=== PATIENT | female | born 1945 | race Asian ===

== ENCOUNTER 2016-10-26 08:00 | Outpatient (CLI) | payer MEDICARE, OTHER | END 2016-10-26 08:01 | disposition home or self-care (01) | DX: E11.65 Type 2 diabetes mellitus with hyperglycemia (principal) ==

== ENCOUNTER 2016-12-16 08:50 | Outpatient (CLI) | payer MEDICARE, OTHER ==
[2016-12-18 14:52] LABS: ANA SCREEN NEGATIVE (NEGATIVE)
== END 2016-12-16 08:51 | disposition home or self-care (01) ==
LOC: LAB.R 08:50
PROVIDERS: ATTEND Internal Medicine
DX: M25.50 Pain in unspecified joint (principal)
CPT/HCPCS: 85651; 86038; 86140; 86430

== ENCOUNTER 2017-03-17 21:00 | Outpatient (CLI) | payer MEDICARE, OTHER ==
[2017-03-17 14:17] LABS: BASOPHILS % (AUTO) 0.5 %; EOSINOPHILS # (AUTO) 0.1 10^3/uL (0.0-0.7); HCT - HEMATOCRIT 41.6 % (37.0-47.0); LYMPHOCYTES # (AUTO) 1.4 10^3/uL (1.5-3.5); LYMPHOCYTES % (AUTO) 20.4 %; MEAN CORPUSCULAR HEMOGLOBIN 29.9 pg (27.0-31.0); MEAN CORPUSCULAR HGB CONC 33.6 g/dL (32.0-36.0); MEAN PLATELET VOLUME 8.3 fL (7.9-10.8); MONOCYTES # (AUTO) 0.4 10^3/uL (0.0-1.0); MONOCYTES % (AUTO) 6.2 %; NEUTROPHILS # (AUTO) 4.9 10^3/uL (1.5-6.6); NEUTROPHILS % (AUTO) 71.9 %; RED BLOOD COUNT 4.68 10^6/uL (4.20-5.40); RED CELL DISTRIBUTION WIDTH 14.3 % (12.0-15.0); UNCORRECTED WHITE BLOOD COUNT 6.8 x10^3/uL; WHITE BLOOD COUNT 6.8 x10^3/uL (4.8-10.8)
[2017-03-17 14:24] LABS: ALBUMIN/GLOBULIN RATIO 1.2 (1.0-2.2); BILIRUBIN,TOTAL 0.5 mg/dL (0.2-1.0); BUN - BLOOD UREA NITROGEN 14 mg/dL (6-20); CALCIUM 8.7 mg/dL (8.5-10.3); CARBON DIOXIDE - CO2 27 mmol/L (21-32); CHLORIDE 106 mmol/L (101-111); CHOL/HDL RATIO 3.2 (<4.4); CHOLESTEROL 188 mg/dL; CREATININE 0.8 mg/dL (0.4-1.0); GFR - MDRD 70 (>89); GLUCOSE 130 mg/dL (70-100); HDL CHOLESTEROL 58 mg/dL; LDL/HDL RATIO 1.9 (<4.4); POTASSIUM 3.9 mmol/L (3.5-5.0); SODIUM 141 mmol/L (135-145); TOTAL PROTEIN 7.7 g/dL (6.7-8.2); TRIGLYCERIDES 91 mg/dL; VLDL CHOLESTEROL 18 mg/dL
[2017-03-17 15:38] LABS: HEMOGLOBIN A1C 0.67 g/dL
== END 2017-03-17 21:01 ==
LOC: LAB.N 21:00
PROVIDERS: ATTEND Internal Medicine
DX: Z79.899 Other long term (current) drug therapy (principal); E78.5 Hyperlipidemia, unspecified; I10 Essential (primary) hypertension; E88.81 Metabolic syndrome and other insulin resistance
CPT/HCPCS: 36415; 80053; 80061; 83036; 84443; 85025

== ENCOUNTER 2017-06-03 10:28 | Outpatient (CLI) | payer MEDICARE, OTHER | END 2017-06-03 10:29 | disposition home or self-care (01) | LOC: LAB.R 10:28 | PROVIDERS: ATTEND Obstetrics & Gynecology | DX: L02.215 Cutaneous abscess of perineum (principal) | CPT/HCPCS: 87070 ==

== ENCOUNTER 2017-06-04 11:32 | Outpatient (CLI) | payer MEDICARE, OTHER | END 2017-06-04 11:33 | disposition home or self-care (01) | LOC: EMS 11:32 | PROVIDERS: ATTEND Surgery | DX: R06.00 Dyspnea, unspecified (principal) ==

== ENCOUNTER 2017-06-21 08:00 | Outpatient (CLI) | payer MEDICARE, OTHER ==
[2017-06-21 16:18] LABS: CREATININE 0.8 mg/dL (0.4-1.0)
== END 2017-06-21 08:01 | disposition home or self-care (01) ==
LOC: LAB.R 08:00
PROVIDERS: ATTEND Internal Medicine
DX: G44.53 Primary thunderclap headache (principal)
CPT/HCPCS: 82565

== ENCOUNTER 2017-06-22 07:25 | Outpatient (CLI) | payer MEDICARE, OTHER ==
[2017-06-22] MEDS ORDERED: IOPAMIDOL-300 100 ML VIAL ONE (07:37)
[2017-06-22] MEDS ORDERED: IOPAMIDOL-300 100 ML VIAL IVP ONE (08:03)
--- NOTE | 2017-06-22 14:19 | CT Report ---
EXAM: CT HEAD, WITHOUT AND WITH CONTRAST. EXAM DATE: 06/22/2017 08:03 AM. CLINICAL HISTORY: Thunderclap headache, primary. COMPARISON: None. TECHNIQUE: Multiaxial CT images were obtained from the foramen magnum to the vertex prior to and foll owing contrast administration. Reformats: Coronal. IV contrast: 80 mL Isovue 300. In accordance with CT protocol optimization, one or more of the following dose reduction techniques w ere utilized for this exam: automated exposure control, adjustment of mA and/or KV based on patient s ize, or use of iterative reconstructive technique. FINDINGS: Parenchyma: No intraparenchymal hemorrhage. No evidence of mass, midline shift, or CT findings of inf arction. Allen-white differentiation is distinct. Mild age-related volume loss is present. No abnormal enhancement. Extraaxial Spaces: Normal for age. No subdural or epidural collections identified. No subarachnoid he morrhage. Ventricles: Normal in size and position. Sinuses and Orbits: Imaged paranasal sinuses, orbits, and mastoids show no significant abnormality. Bones: No evidence of fracture or calvarial defect. Other: None. IMPRESSION: 1. Negative CT scan of the head without and with contrast. No acute abnormality. [facility] Referring Provider Line: [phone] SITE ID: [id number]
== END 2017-06-22 07:26 | disposition home or self-care (01) ==
LOC: DI 07:25
PROVIDERS: ATTEND Internal Medicine
DX: G44.53 Primary thunderclap headache (principal)
CPT/HCPCS: 70470; Q9967

== ENCOUNTER 2017-10-12 10:00 | Outpatient (CLI) | payer MEDICARE, OTHER ==
[2017-10-12 13:50] LABS: HB2 TOTAL 16.3 g/dL; HEMOGLOBIN A1C 0.69 g/dL
== END 2017-10-12 10:01 | disposition home or self-care (01) ==
LOC: LAB.N 10:00
PROVIDERS: ATTEND Internal Medicine
DX: E88.81 Metabolic syndrome and other insulin resistance (principal); E11.65 Type 2 diabetes mellitus with hyperglycemia
CPT/HCPCS: 36415; 83036

== ENCOUNTER 2017-10-17 01:02 | Outpatient (CLI) | payer MEDICARE, OTHER | END 2017-10-17 01:03 | disposition critical access hospital (66) | LOC: EMS 01:02 | PROVIDERS: ATTEND Surgery | DX: R51 Headache (principal); R11.0 Nausea; R03.0 Elevated blood-pressure reading, without diagnosis of hypertension | CPT/HCPCS: A0425; A0429 ==

== ENCOUNTER 2017-10-17 01:39 | Emergency (ER) | payer MEDICARE, OTHER ==
[2017-10-17] MEDS ORDERED: diphenhydrAMINE INJ 50 MG/ML VIAL IVP STA (01:52)
[2017-10-17] MEDS ORDERED: METOPROLOL 5 MG/5 ML VIAL IVP STA (01:52)
[2017-10-17] MEDS ORDERED: METOCLOPRAMIDE 10 MG/2 ML VIAL IVP STA (01:52)
[2017-10-17] MEDS ORDERED: KETOROLAC 60 MG/2 ML VIAL IVP STA (01:52)
[2017-10-17] MEDS ORDERED: ACETAMINOPHEN 325 MG TABLET PO STA (01:56)
[2017-10-17 02:02] LABS: BASOPHILS # (AUTO) 0.1 10^3/uL (0.0-0.1); BASOPHILS % (AUTO) 0.7 %; EOSINOPHILS # (AUTO) 0.1 10^3/uL (0.0-0.7); EOSINOPHILS % (AUTO) 1.1 %; HGB - HEMOGLOBIN 14.1 g/dL (12.0-16.0); LYMPHOCYTES # (AUTO) 2.5 10^3/uL (1.5-3.5); LYMPHOCYTES % (AUTO) 26.9 %; MEAN CORPUSCULAR HEMOGLOBIN 29.8 pg (27.0-31.0); MEAN CORPUSCULAR HGB CONC 33.5 g/dL (32.0-36.0); MEAN PLATELET VOLUME 7.7 fL (7.9-10.8); MONOCYTES # (AUTO) 0.8 10^3/uL (0.0-1.0); MONOCYTES % (AUTO) 8.9 %; NEUTROPHILS # (AUTO) 5.9 10^3/uL (1.5-6.6); NEUTROPHILS % (AUTO) 62.4 %; PLT - PLATELET COUNT 200 10^3/uL (130-450); RED BLOOD COUNT 4.71 10^6/uL (4.20-5.40); RED CELL DISTRIBUTION WIDTH 13.4 % (12.0-15.0); WHITE BLOOD COUNT 9.4 x10^3/uL (4.8-10.8)
[2017-10-17 02:13] LABS: ALBUMIN 3.9 g/dL (3.2-5.5); ALBUMIN/GLOBULIN RATIO 0.9 (1.0-2.2); BILIRUBIN,TOTAL 0.7 mg/dL (0.2-1.0); CALCIUM 8.7 mg/dL (8.5-10.3); CREATININE 0.8 mg/dL (0.4-1.0); TOTAL PROTEIN 8.1 g/dL (6.7-8.2)
[2017-10-17 02:16] LABS: BILIRUBIN,URINE NEGATIVE (NEGATIVE); CLARITY,URINE CLEAR (CLEAR); GLUCOSE, URINE (UA) NEGATIVE (NEGATIVE); KETONES,URINE (UA) NEGATIVE (NEGATIVE); LEUKOCYTE ESTERASE, URINE NEGATIVE (NEGATIVE); NITRITE,URINE NEGATIVE (NEGATIVE); OCCULT BLOOD,URINE TRACE-INTA (NEGATIVE); PH,URINE 5.5 PH (5.0-7.5); PROTEIN,URINE NEGATIVE (NEGATIVE); UROBILINOGEN,URINE 0.2 (NORMAL) E.U./dL (NORMAL)
[2017-10-17 02:40] VITALS: BP 175/73
--- NOTE | 2017-10-17 02:50 | ED Physician Documentation ---
PD HPI HEADACHE - Stated complaint Stated Complaint: DACOSTA - Chief complaint Chief Complaint: Neuro - History obtained from History obtained from: Patient, EMS - History of Present Illness Timing - onset: Today Timing - details: Gradual onset, Still present Location: Front, Right Quality: Aching. No: Thunderclap Associated symptoms: No: Fever, Stiff neck, Nausea, Vomiting, Weakness Contributing factors: Hypertension Recently seen: Not recently seen - Additional information Additional information: patient is a 72 year old female with a history of htn who is presenting to the emergency department for htn and headache. According to patient and ems patient had a slow unset headache that started about 3 hours ago. Patient took her blood pressure and found it to be elevated. She tried going to bed but when she woke up the headache was still there. Patient called ems. When ems arrived patient was still hypertensive but while enroute her blood pressure improved slightly. Upon initial evaluation in the emergency department patient stated her headache was improving and was a 5/10 without any intervention. Review of Systems Constitutional: denies: Fever, Chills Eyes: denies: Decreased vision, Photophobia Ears: denies: Ear pain Nose: reports: Reviewed and negative Throat: reports: Reviewed and negative Cardiac: denies: Chest pain / pressure, Palpitations, Pedal edema, Calf pain Respiratory: denies: Dyspnea GI: denies: Nausea, Vomiting : reports: Reviewed and negative Skin: reports: Reviewed and negative Musculoskeletal: denies: Neck pain, Back pain, Extremity pain Neurologic: reports: Headache. 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 - Present Medications Home Medications: Ambulatory Orders Medication Instructions Recorded Confirmed Allopurinol 300 mg PO DAILY 01/29/13 12/18/14 Atorvastatin Calcium 40 mg PO DAILY 01/29/13 12/18/14 Metoprolol Succinate 50 mg PO DAILY 01/29/13 12/18/14 Telmisartan [Micardis] 40 mg PO DAILY 01/29/13 12/18/14 diltiaZEM CD [Cardizem Cd] 120 mg PO DAILY 06/11/14 12/18/14 Ubidecarenone [Coq-10] 100 mg PO DAILY 12/18/14 12/18/14 - Allergies Allergies/Adverse Reactions: Allergies Allergy/AdvReac Type Severity Reaction Status Date / Time procainamide HCl * Allergy Severe Respiratory Verified 10/17/17 01:47 [From Pronestyl] cephalexin monohydrate * Allergy Intermediate Hives Verified 10/17/17 01:47 [From Keflex] Penicillins Allergy Intermediate Respiratory Verified 10/17/17 01:47 oxycodone HCl * Allergy Nausea Verified 10/17/17 01:47 [From Percodan] oxycodone terephthalate * Allergy Nausea Verified 10/17/17 01:47 [From Percodan] - Social History Does the pt smoke?: No Smoking Status: Never smoker Does the pt drink ETOH?: No Does the pt have substance abuse?: No - Immunizations Immunizations are current?: Yes - POLST Patient has POLST: No PD ED PE NORMAL - Vitals Vital signs reviewed: Yes - General General: Alert and oriented X 3, No acute distress, Well developed/nourished - HEENT HEENT: Atraumatic, PERRL, Moist mucous membranes - Neck Neck: Supple, no meningeal sign - Cardiac Cardiac: RRR - Respiratory Respiratory: No respiratory distress - Abdomen Abdomen: Soft, Non tender, Non distended - Derm Derm: Normal color, Warm and dry - Extremities Extremities: No deformity - Neuro Neuro: Alert and oriented X 3, 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, No motor deficit, No sensory deficit, Normal speech Eye Opening: Spontaneous Motor: Obeys Commands Verbal: Oriented GCS Score: 15 Results - Vitals Vitals: Vital Signs - 24 hr 10/17/17 10/17/17 10/17/17 01:40 02:07 02:14 Temperature 37.0 C Heart Rate 80 80 74 Respiratory 22 Rate Blood Pressure 216/87 H 214/83 H 187/80 H O2 Saturation 97 10/17/17 10/17/17 10/17/17 02:20 02:25 02:39 Temperature Heart Rate 75 67 67 Respiratory 14 Rate Blood Pressure 190/80 H 195/77 H 175/73 H O2 Saturation 99 Oxygen O2 Source Room air - EKG (time done) 0151 Rate: Rate (enter#) (72) Rhythm: NSR [place]: Normal QRS: LVH, Poor R wave progression Compare to prior EKG: Changed from prior EKG - Labs Labs: Laboratory Tests 10/17/17 10/17/17 10/17/17 01:56 01:56 01:56 WBC 9.4 RBC 4.71 Hgb 14.1 Hct 42.0 MCV 89.0 MCH 29.8 MCHC 33.5 RDW 13.4 Plt Count 200 MPV 7.7 L Neut # 5.9 Lymph # 2.5 [place] # 0.8 Eos # 0.1 Baso # 0.1 Absolute Nucleated RBC 0.00 Nucleated RBC % 0.0 Sodium 137 Potassium 3.9 Chloride 101 Carbon Dioxide 28 Anion Gap 8.0 BUN 17 Creatinine 0.8 Estimated GFR (MDRD) 70 L Glucose 100 Calcium 8.7 Total Bilirubin 0.7 AST 23 ALT 20 Alkaline Phosphatase 69 Troponin I < 0.04 Total Protein 8.1 Albumin 3.9 Globulin 4.2 Albumin/Globulin Ratio 0.9 L Lipase 24 Urine Color Urine Clarity Urine pH Ur Specific [place] Urine Protein Urine Glucose (UA) Urine Ketones Urine Occult Blood Urine Nitrite Urine Bilirubin Urine Urobilinogen Ur Leukocyte Esterase Ur Microscopic Review Urine Culture Comments 10/17/17 02:00 WBC RBC Hgb Hct MCV MCH MCHC RDW Plt Count MPV Neut # Lymph # [place] # Eos # Baso # Absolute Nucleated RBC Nucleated RBC % Sodium Potassium Chloride Carbon Dioxide Anion Gap BUN Creatinine Estimated GFR (MDRD) Glucose Calcium Total Bilirubin AST ALT Alkaline Phosphatase Troponin I Total Protein Albumin Globulin Albumin/Globulin Ratio Lipase Urine Color YELLOW Urine Clarity CLEAR Urine pH 5.5 Ur Specific [place] <=1.005 Urine Protein NEGATIVE Urine Glucose (UA) NEGATIVE Urine Ketones NEGATIVE Urine Occult Blood TRACE-INTA Urine Nitrite NEGATIVE Urine Bilirubin NEGATIVE Urine Urobilinogen 0.2 (NORMAL) Ur Leukocyte Esterase NEGATIVE Ur Microscopic Review NOT INDICATED Urine Culture Comments NOT INDICATED PD MEDICAL DECISION MAKING - ED course Complexity details: reviewed old records, reviewed results, re-evaluated patient , considered differential, d/w patient ED course: Patient was seen and examined at bedside. patient was well appearing and no distress. ekg was performed and showed no acute ischemic changes. IV access was gained and labs were drawn. patient stated that she had skipped her metoprolol dose today. patient was treated with lopressor 5mg, toradol, reglan and benadryl. patient's blood work was within normal limits. Patient's headache resolved and blood pressure was decreased by over 20%. While SAH was considered it was unlikely with the insidious onset and resolution of symptoms. patient showed no other signs of end organ damage and was stable for discharge home with outpatient follow up. Departure - Departure Disposition: Home, Self Care Clinical Impression: Hypertension Condition: Good Instructions: Hypertension Dc Follow-Up: Aj Hardin MD [Primary Care Provider] - Tomorrow Comments: Your symptoms today were likely secondary to high blood pressure. It is improved now. You will need to take all of your high blood pressure medications. If you have recurrent episodes of where it is not controlled you will need to follow up with your doctor for possible change in your medication dosing. You may return to the emergency department at any time for new, worsening or uncontrollable symptoms.
== END 2017-10-17 03:01 | disposition home or self-care (01) ==
LOC: EDUNIT# → ED 01:39
DX: I10 Essential (primary) hypertension (principal)
CPT/HCPCS: 36415; 80053; 81003; 83690; 84484; 85025; 93005; 96374; 96375; 99284; A9270; J1200; J2765; 81001; 87086

== ENCOUNTER 2018-07-27 09:31 | Outpatient (CLI) | payer MEDICARE, OTHER ==
[2018-07-27 13:13] LABS: BASOPHILS % (AUTO) 0.3 %; EOSINOPHILS # (AUTO) 0.1 10^3/uL (0.0-0.7); EOSINOPHILS % (AUTO) 1.1 %; HGB - HEMOGLOBIN 13.9 g/dL (12.0-16.0); LYMPHOCYTES # (AUTO) 1.4 10^3/uL (1.5-3.5); MEAN CORPUSCULAR HEMOGLOBIN 29.8 pg (27.0-31.0); MEAN CORPUSCULAR HGB CONC 33.3 g/dL (32.0-36.0); MEAN CORPUSCULAR VOLUME 89.3 fL (81.0-99.0); MEAN PLATELET VOLUME 8.2 fL (7.9-10.8); MONOCYTES # (AUTO) 0.4 10^3/uL (0.0-1.0); MONOCYTES % (AUTO) 7.1 %; NEUTROPHILS # (AUTO) 3.9 10^3/uL (1.5-6.6); NEUTROPHILS % (AUTO) 67.5 %; PLT - PLATELET COUNT 186 10^3/uL (130-450); RED BLOOD COUNT 4.67 10^6/uL (4.20-5.40); RED CELL DISTRIBUTION WIDTH 14.1 % (12.0-15.0); WHITE BLOOD COUNT 5.8 x10^3/uL (4.8-10.8)
[2018-07-27 13:33] LABS: ALBUMIN 3.5 g/dL (3.2-5.5); ALKALINE PHOSPHATASE 66 IU/L (42-121); ALT ALANINE AMINOTRANSFERASE 20 IU/L (10-60); AST ASPARTATE AMINOTRANSFERASE 21 IU/L (10-42); BILIRUBIN,TOTAL 0.6 mg/dL (0.2-1.0); BUN - BLOOD UREA NITROGEN 10 mg/dL (6-20); CALCIUM 8.9 mg/dL (8.5-10.3); CARBON DIOXIDE - CO2 27 mmol/L (21-32); CHLORIDE 106 mmol/L (101-111); CHOL/HDL RATIO 4.6 (<4.4); CHOLESTEROL 194 mg/dL; CREATININE 0.8 mg/dL (0.4-1.0); GFR - MDRD 70 (>89); GLUCOSE 123 mg/dL (70-100); HDL CHOLESTEROL 42 mg/dL; LDL CHOLESTEROL,CALCULATED 138 mg/dL; LDL/HDL RATIO 3.3 (<4.4); SODIUM 139 mmol/L (135-145); URIC ACID 4.4 mg/dL (2.6-7.2); VLDL CHOLESTEROL 14 mg/dL
[2018-07-27 13:38] LABS: HB2 TOTAL 14.7 g/dL; HEMOGLOBIN A1C 0.63 g/dL; HEMOGLOBIN A1C % 6.1 % (4.6-6.2)
== END 2018-07-27 23:59 | disposition home or self-care (01) ==
LOC: LAB.N 09:31
PROVIDERS: ATTEND Internal Medicine
DX: E78.5 Hyperlipidemia, unspecified (principal); E11.65 Type 2 diabetes mellitus with hyperglycemia; I48.91 Unspecified atrial fibrillation; M10.9 Gout, unspecified; I10 Essential (primary) hypertension
CPT/HCPCS: 36415; 80053; 80061; 83036; 83721; 84443; 84550; 85025

== ENCOUNTER 2018-08-04 10:53 | Outpatient (CLI) | payer MEDICARE, OTHER ==
--- NOTE | 2018-08-07 08:57 | Mammography Report ---
Reason: SCREENING MAMMOGRAM Procedure Date: 08/04/2018 Accession Number: [id number] / [id number] Procedure: MGN - Screening Mammo Dig Bilat CPT Code: FULL RESULT: EXAM: Screening Mammo Dig Bilat DATE: 08/04/2018 11:12 AM CLINICAL HISTORY: Screening encounter. History of 10 year hormone therapy. History of right breast cyst removal in 1971. TECHNIQUE: Bilateral CC and MLO views were obtained. COMPARISON: 10/13/2015 and 08/08/2013. FINDINGS: The breasts demonstrate heterogeneously dense fibroglandular parenchyma bilaterally. No suspicious masses, clustered microcalcifications, or regions of architectural distortion are identified. IMPRESSION: Negative examination RECOMMENDATION: Routine annual screening unless otherwise clinically indicated. BIRADS CATEGORY 1: Negative STANDARD QUALIFYING STATEMENTS: 1. This examination was reviewed with the aid of Computer-Aided Detection (CAD). 2. A negative or benign imaging report should not preclude biopsy if clinically suspicious findings are present. 3. Dense breasts may obscure an underlying neoplasm. 4. This examination was reviewed without the aid of 3D breast imaging (tomosynthesis).
== END 2018-08-04 10:54 | disposition home or self-care (01) ==
LOC: DI.N 10:53
PROVIDERS: ATTEND Internal Medicine
DX: Z12.31 Encounter for screening mammogram for malignant neoplasm of breast (principal)
CPT/HCPCS: 77067

== ENCOUNTER 2018-12-12 08:00 | Outpatient (CLI) | payer MEDICARE, OTHER ==
[2018-12-12 19:03] LABS: HGB - HEMOGLOBIN 14.2 g/dL (12.0-16.0); MEAN CORPUSCULAR HEMOGLOBIN 29.1 pg (27.0-31.0); MEAN CORPUSCULAR HGB CONC 32.2 g/dL (32.0-36.0); MEAN CORPUSCULAR VOLUME 90.5 fL (81.0-99.0); MEAN PLATELET VOLUME 8.3 fL (7.9-10.8); RED BLOOD COUNT 4.89 10^6/uL (4.20-5.40); RED CELL DISTRIBUTION WIDTH 14.8 % (12.0-15.0); WHITE BLOOD COUNT 6.9 x10^3/uL (4.8-10.8)
[2018-12-12 19:09] LABS: CALCIUM 9.4 mg/dL (8.5-10.3); CREATININE 0.9 mg/dL (0.4-1.0)
== END 2018-12-12 23:59 | disposition home or self-care (01) ==
LOC: LAB.N 08:00
PROVIDERS: ATTEND Family Medicine
DX: I10 Essential (primary) hypertension (principal)
CPT/HCPCS: 36415; 80048; 83880; 85027

== ENCOUNTER 2019-05-22 15:48 | Outpatient (CLI) | payer MEDICARE, OTHER ==
[2019-05-22 16:04] LABS: BASOPHILS % (AUTO) 0.3 %; EOSINOPHILS # (AUTO) 0.1 10^3/uL (0.0-0.7); EOSINOPHILS % (AUTO) 0.9 %; HGB - HEMOGLOBIN 14.6 g/dL (12.0-16.0); LYMPHOCYTES # (AUTO) 1.7 10^3/uL (1.5-3.5); LYMPHOCYTES % (AUTO) 24.9 %; MEAN CORPUSCULAR HGB CONC 31.3 g/dL (32.0-36.0); MEAN CORPUSCULAR VOLUME 95.7 fL (81.0-99.0); MEAN PLATELET VOLUME 9.1 fL (7.9-10.8); MONOCYTES # (AUTO) 0.6 10^3/uL (0.0-1.0); MONOCYTES % (AUTO) 8.1 %; NEUTROPHILS # (AUTO) 4.5 10^3/uL (1.5-6.6); NEUTROPHILS % (AUTO) 65.2 %; PLT - PLATELET COUNT 207 10^3/uL (130-450); RED BLOOD COUNT 4.87 10^6/uL (4.20-5.40); WHITE BLOOD COUNT 6.9 x10^3/uL (4.8-10.8)
[2019-05-22 16:16] LABS: ALBUMIN 4.7 g/dL (3.2-5.5); ALBUMIN/GLOBULIN RATIO 1.1 (1.0-2.2); BILIRUBIN,TOTAL 0.6 mg/dL (0.2-1.0); CREATININE 0.8 mg/dL (0.4-1.0); TOTAL PROTEIN 8.8 g/dL (6.7-8.2)
[2019-05-22 16:54] LABS: THYROID STIMULATING HORMONE 1.57 uIU/mL (0.34-5.60)
[2019-05-22 16:56] LABS: FREE T4 (FREE THYROXINE) 0.84 ng/dL (0.58-1.64)
--- NOTE | 2019-05-23 11:47 | XRAY Report ---
Reason: PROXIMAL MUSCLE WEAKNESS Procedure Date: 05/22/2019 Accession Number: [id number] / [id number] Procedure: XR - Lumbar Spine Complete CPT Code: Final Report FULL RESULT: EXAM: LUMBOSACRAL SPINE RADIOGRAPHY EXAM DATE: 05/22/2019 05:08 PM. CLINICAL HISTORY: PROXIMAL MUSCLE WEAKNESS. COMPARISONS: None. TECHNIQUE: 3 views. FINDINGS: Alignment: There is mild right convex scoliosis. There is 0.4 cm anterolisthesis of L4 on L5. Bones: Five cby-zec-zlkckzo lumbar vertebral bodies are present. No fractures or bone lesions. Disks: Mild disk space narrowing of the L5-S1 level. Facets: There is mild lower lumbar facet arthrosis. Sacroiliac Joints: Unremarkable. Soft Tissues: No significant abnormalities. IMPRESSION: 1. There is no evidence of fracture or dislocation. 2. There is grade 1 anterolisthesis of L4 on L5. 3. There is mild right convex scoliosis. 4. There is mild lower lumbar degenerative disease. [facility]
== END 2019-05-22 15:49 | disposition home or self-care (01) ==
LOC: LAB 15:48 → DI 15:49
PROVIDERS: ATTEND Family Medicine
DX: M47.816 Spondylosis without myelopathy or radiculopathy, lumbar region (principal); M62.81 Muscle weakness (generalized); M43.16 Spondylolisthesis, lumbar region; M41.9 Scoliosis, unspecified
CPT/HCPCS: 36415; 72110; 80053; 84439; 84443; 84481; 85025

== ENCOUNTER 2019-09-03 08:44 | Outpatient (CLI) | payer MEDICARE, OTHER ==
[2019-09-03 12:14] LABS: CHOLESTEROL 267 mg/dL; HDL CHOLESTEROL 53 mg/dL; LDL CHOLESTEROL,CALCULATED 191 mg/dL; LDL/HDL RATIO 3.6 (<4.4); MAGNESIUM 2.6 mg/dL (1.7-2.8); VLDL CHOLESTEROL 23 mg/dL
== END 2019-09-03 23:59 | disposition home or self-care (01) ==
LOC: LAB.N 08:44
PROVIDERS: ATTEND Internal Medicine Cardiovascular Disease
DX: I10 Essential (primary) hypertension (principal); E78.5 Hyperlipidemia, unspecified
CPT/HCPCS: 36415; 80061; 82088; 83721; 83735; 83835

== ENCOUNTER 2019-11-08 10:08 | Outpatient (CLI) | payer MEDICARE, OTHER | END 2019-11-08 10:09 | disposition home or self-care (01) | LOC: LAB 10:08 | PROVIDERS: ATTEND Internal Medicine Cardiovascular Disease | DX: I95.89 Other hypotension (principal) | CPT/HCPCS: 36415; 81599; 83088; 84260 ==

== ENCOUNTER 2019-11-09 11:32 | Outpatient (CLI) | payer MEDICARE, OTHER | END 2019-11-09 23:59 | disposition home or self-care (01) | LOC: LAB.WCP 11:32 | PROVIDERS: ATTEND Internal Medicine Cardiovascular Disease | DX: I95.89 Other hypotension (principal) | CPT/HCPCS: 84260 ==

== ENCOUNTER 2019-12-20 10:04 | Outpatient (CLI) | payer MEDICARE, OTHER ==
[2019-12-20 12:28] LABS: CHOL/HDL RATIO 2.8 (<4.4); CHOLESTEROL 156 mg/dL; HDL CHOLESTEROL 55 mg/dL; LDL CHOLESTEROL,CALCULATED 82 mg/dL; LDL/HDL RATIO 1.5 (<4.4); VLDL CHOLESTEROL 19 mg/dL
== END 2019-12-20 23:59 | disposition home or self-care (01) ==
LOC: LAB.WCP 10:04
PROVIDERS: ATTEND Family Medicine
DX: E78.5 Hyperlipidemia, unspecified (principal)
CPT/HCPCS: 36415; 80061; 83721

== ENCOUNTER 2020-03-10 08:00 | Outpatient (CLI) | payer MEDICARE, OTHER ==
[2020-03-10 18:20] LABS: BASOPHILS % (AUTO) 0.4 %; EOSINOPHILS # (AUTO) 0.1 10^3/uL (0.0-0.7); EOSINOPHILS % (AUTO) 0.9 %; HGB - HEMOGLOBIN 13.8 g/dL (12.0-16.0); LYMPHOCYTES # (AUTO) 1.2 10^3/uL (1.5-3.5); MEAN CORPUSCULAR HEMOGLOBIN 29.8 pg (27.0-31.0); MEAN CORPUSCULAR HGB CONC 31.7 g/dL (32.0-36.0); MEAN PLATELET VOLUME 9.8 fL (7.9-10.8); MONOCYTES # (AUTO) 0.4 10^3/uL (0.0-1.0); MONOCYTES % (AUTO) 7.4 %; NEUTROPHILS # (AUTO) 3.8 10^3/uL (1.5-6.6); NEUTROPHILS % (AUTO) 69.1 %; PLT - PLATELET COUNT 204 10^3/uL (130-450); RED BLOOD COUNT 4.63 10^6/uL (4.20-5.40); RED CELL DISTRIBUTION WIDTH 13.4 % (12.0-15.0); WHITE BLOOD COUNT 5.6 x10^3/uL (4.8-10.8)
[2020-03-10 18:59] LABS: ALBUMIN 4.2 g/dL (3.2-5.5); ALBUMIN/GLOBULIN RATIO 1.1 (1.0-2.2); ALKALINE PHOSPHATASE 61 IU/L (42-121); ALT ALANINE AMINOTRANSFERASE 27 IU/L (10-60); AST ASPARTATE AMINOTRANSFERASE 21 IU/L (10-42); BILIRUBIN,TOTAL 0.6 mg/dL (0.2-1.0); BUN - BLOOD UREA NITROGEN 14 mg/dL (6-20); CARBON DIOXIDE - CO2 29 mmol/L (21-32); CHLORIDE 103 mmol/L (101-111); CREATININE 0.8 mg/dL (0.4-1.0); GLUCOSE 100 mg/dL (70-100); SODIUM 139 mmol/L (135-145); TOTAL PROTEIN 7.9 g/dL (6.7-8.2); URIC ACID 4.9 mg/dL (2.6-7.2)
[2020-03-10 19:25] LABS: CRP - C-REACTIVE PROTEIN < 1.0 mg/dL (0-1.0)
== END 2020-03-10 23:59 | disposition home or self-care (01) ==
LOC: LAB.WCP 08:00
PROVIDERS: ATTEND Family Medicine
DX: M60.9 Myositis, unspecified (principal); I77.9 Disorder of arteries and arterioles, unspecified; R03.0 Elevated blood-pressure reading, without diagnosis of hypertension; I10 Essential (primary) hypertension; M10.9 Gout, unspecified; M19.90 Unspecified osteoarthritis, unspecified site; M25.552 Pain in left hip; M25.551 Pain in right hip
CPT/HCPCS: 36415; 80053; 84443; 84550; 85025; 85651; 86140

== ENCOUNTER 2020-03-21 10:25 | Outpatient (CLI) | payer MEDICARE, OTHER ==
--- NOTE | 2020-03-21 17:01 | XRAY Report ---
PROCEDURE: Finger(s) RT INDICATIONS: GOUT, DJD TECHNIQUE: AP hand, 3 views of the right first finger(s) acquired. COMPARISON: None FINDINGS: Bones: No fractures or dislocations. No suspicious bony lesions. Severe first CMC joint osteoarthri tis. Severe first DIP joint osteoarthritis. No osseous erosive changes. Soft tissues: No suspicious soft tissue calcifications. 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 Reviewed by: Tanvi Hernandez MD, PhD on 03/21/2020 4:59 PM PDT Approved by: Tanvi Henrandez MD, PhD on 03/21/2020 4:59 PM PDT Station ID: [id number]
--- NOTE | 2020-03-21 17:03 | XRAY Report ---
PROCEDURE: Foot 3 View RT INDICATIONS: RIGHT FOOT PX TECHNIQUE: 3 views of the foot were acquired. COMPARISON: None FINDINGS: Bones: No fractures or dislocations. No suspicious bony lesions. Mild first and fifth MTP joint os teoarthritis. Mild hallux valgus deformity. Large plantar and posterior calcaneal bone spurs. Soft tissues: No tibiotalar joint effusion. Achilles tendon appears normal. IMPRESSION: 1. Mild first and fifth MTP joint osteoarthritis. 2. No fracture. No acute osseous lesion. If there is continued clinical concern for pathology, then r epeat plain film radiographs (7-10 days) or advanced imaging (CT, MR, bone scan) should be considered for further evaluation. Reviewed by: Tanvi Hernandez MD, PhD on 03/21/2020 5:02 PM PDT Approved by: Tanvi Hernandez MD, PhD on 03/21/2020 5:02 PM PDT Station ID: [id number]
--- NOTE | 2020-03-21 17:05 | XRAY Report ---
PROCEDURE: Hips 2V BILAT INDICATIONS: BILAT HIP PX TECHNIQUE: 2 views of the right hip and left hip were acquired. COMPARISON: 02/12/2016 FINDINGS: Bones: No fractures or dislocations. No suspicious bony lesions. The visualized pelvic ring appear s intact. Osseous hypertrophy noted in the hips bilaterally compatible with mild to moderate osteoart hritis. Soft tissues: No suspicious soft tissue calcifications or masses. IMPRESSION: 1. Mild to moderate bilateral hip osteoarthritis. 2. No fracture. No acute osseous lesion. If there is continued clinical concern for pathology, thenad vanced imaging (CT, MR, bone scan) should be considered for further evaluation. Reviewed by: Tanvi Hernandez MD, PhD on 03/21/2020 5:04 PM PDT Approved by: Tanvi Hernandez MD, PhD on 03/21/2020 5:04 PM PDT Station ID: [id number]
== END 2020-03-21 10:26 | disposition home or self-care (01) ==
LOC: DI 10:25
PROVIDERS: ATTEND Family Medicine
DX: M18.11 Unilateral primary osteoarthritis of first carpometacarpal joint, right hand (principal); M19.041 Primary osteoarthritis, right hand; M19.071 Primary osteoarthritis, right ankle and foot; M16.0 Bilateral primary osteoarthritis of hip
CPT/HCPCS: 73140; 73521

== ENCOUNTER 2020-11-17 10:22 | Outpatient (CLI) | payer MEDICARE, OTHER ==
--- NOTE | 2020-11-18 12:12 | Mammography Report ---
BILATERAL DIGITAL SCREENING MAMMOGRAM 3D/2D: 11/17/2020 CLINICAL: Routine screening. Comparison is made to exams dated: 08/04/2018 mammogram, 10/13/2015 mammogram, and 08/08/2013 mammogram - [facility]. The tissue of both breasts is heterogeneously dense. This may lower the sensitivity of mammography. There is an asymmetry in the left breast middle depth medial region seen on the craniocaudal view onl y. This is more prominent. No other significant masses, calcifications, or other findings are seen in either breast. IMPRESSION: INCOMPLETE: NEEDS ADDITIONAL IMAGING EVALUATION The asymmetry in the medial left breast is indeterminate. Additional views with possible ultrasound are recommended. This exam was interpreted at Station ID: [id number]. NOTE: For mammograms, a report in lay terms will be sent to the patient. Approximately 15% of breast malignancies will not be visualized mammographically. In the management of a palpable breast mass, a negative mammogram must not discourage biopsy of a clinically suspicious lesion. Electronically Signed By: Rodrigo Small M.D. slc/:11/17/2020 11:47:58 ACR BI-RADS Category 0: Incomplete 3340F PARENCHYMAL PATTERN: (D) - The breast(s) demonstrate(s) heterogeneously dense fibroglandular [place]. BI-RADS CATEGORY: (0) - 0 Mammo and [place] [id number] Immediate follow-up LATERALITY: (B)
== END 2020-11-17 10:23 | disposition home or self-care (01) ==
LOC: DI.N 10:22
PROVIDERS: ATTEND Family Medicine
DX: Z12.31 Encounter for screening mammogram for malignant neoplasm of breast (principal); R92.8 Other abnormal and inconclusive findings on diagnostic imaging of breast

== ENCOUNTER 2020-12-29 08:00 | Outpatient (CLI) | payer MEDICARE, OTHER ==
[2020-12-29 11:52] LABS: BASOPHILS % (AUTO) 0.3 %; EOSINOPHILS # (AUTO) 0.1 10^3/uL (0.0-0.7); EOSINOPHILS % (AUTO) 1.3 %; HCT - HEMATOCRIT 44.6 % (37.0-47.0); HGB - HEMOGLOBIN 13.8 g/dL (12.0-16.0); LYMPHOCYTES # (AUTO) 1.4 10^3/uL (1.5-3.5); LYMPHOCYTES % (AUTO) 22.1 %; MEAN CORPUSCULAR HEMOGLOBIN 29.1 pg (27.0-31.0); MEAN CORPUSCULAR HGB CONC 30.9 g/dL (32.0-36.0); MEAN CORPUSCULAR VOLUME 93.9 fL (81.0-99.0); MEAN PLATELET VOLUME 9.8 fL (7.9-10.8); MONOCYTES # (AUTO) 0.5 10^3/uL (0.0-1.0); MONOCYTES % (AUTO) 7.4 %; NEUTROPHILS # (AUTO) 4.2 10^3/uL (1.5-6.6); NEUTROPHILS % (AUTO) 68.6 %; PLT - PLATELET COUNT 207 10^3/uL (130-450); RED BLOOD COUNT 4.75 10^6/uL (4.20-5.40); RED CELL DISTRIBUTION WIDTH 13.1 % (12.0-15.0); WHITE BLOOD COUNT 6.1 x10^3/uL (4.8-10.8)
[2020-12-29 12:15] LABS: ALBUMIN 4.5 g/dL (3.2-5.5); ALBUMIN/GLOBULIN RATIO 1.2 (1.0-2.2); ALKALINE PHOSPHATASE 64 IU/L (42-121); ALT ALANINE AMINOTRANSFERASE 28 IU/L (10-60); AST ASPARTATE AMINOTRANSFERASE 24 IU/L (10-42); BILIRUBIN,TOTAL 0.7 mg/dL (0.2-1.0); BUN - BLOOD UREA NITROGEN 16 mg/dL (6-20); CALCIUM 9.3 mg/dL (8.5-10.3); CARBON DIOXIDE - CO2 29 mmol/L (21-32); CHLORIDE 101 mmol/L (101-111); CHOL/HDL RATIO 2.7 (<4.4); CHOLESTEROL 175 mg/dL; CREATININE 0.9 mg/dL (0.4-1.0); GFR - MDRD 61 (>89); GLUCOSE 128 mg/dL (70-100); HDL CHOLESTEROL 66 mg/dL; LDL CHOLESTEROL,CALCULATED 96 mg/dL; LDL/HDL RATIO 1.5 (<4.4); POTASSIUM 4.2 mmol/L (3.5-5.0); SODIUM 141 mmol/L (135-145); TOTAL PROTEIN 8.2 g/dL (6.7-8.2); TRIGLYCERIDES 65 mg/dL; VLDL CHOLESTEROL 13 mg/dL
[2020-12-29 12:22] LABS: THYROID STIMULATING HORMONE 2.67 uIU/mL (0.34-5.60)
== END 2020-12-29 23:59 | disposition home or self-care (01) ==
LOC: LAB.WCP 08:00
PROVIDERS: ATTEND Family Medicine
DX: I49.9 Cardiac arrhythmia, unspecified (principal); E78.5 Hyperlipidemia, unspecified; I10 Essential (primary) hypertension; M19.90 Unspecified osteoarthritis, unspecified site; M25.551 Pain in right hip; M25.552 Pain in left hip
CPT/HCPCS: 36415; 80053; 80061; 83721; 84443; 85025

== ENCOUNTER 2021-03-19 08:56 | Outpatient (CLI) | payer MEDICARE, OTHER ==
[2021-03-19 12:36] LABS: CREATININE 0.9 mg/dL (0.4-1.0); MAGNESIUM 2.8 mg/dL (1.7-2.8)
== END 2021-03-19 23:59 | disposition home or self-care (01) ==
LOC: LAB.WCP 08:56
PROVIDERS: ATTEND Internal Medicine Cardiovascular Disease
DX: I10 Essential (primary) hypertension (principal)
CPT/HCPCS: 36415; 80048; 83735; 84443

== ENCOUNTER 2021-04-10 08:27 | Outpatient (CLI) | payer MEDICARE, OTHER ==
--- NOTE | 2021-04-13 10:20 | Mammography Report ---
UNILATERAL LEFT DIGITAL DIAGNOSTIC MAMMOGRAM 3D/2D: 04/10/2021 CLINICAL: Patient returns today to evaluate an asymmetry in the left breast. Comparison is made to exams dated: 11/17/2020 mammogram, 08/04/2018 mammogram, 10/13/2015 mammogram, 07/12 mammogram, 08/11/2010 mammogram, and 01/14/2010 mammogram - [facility]. The tis nilay of left breast is heterogeneously dense. This may lower the sensitivity of mammography. The previously described asymmetry in the left breast middle depth medial region seen on the cranioca udal view only is no longer seen and most likely is summation artifact of fibroglandular tissue. No other significant masses or calcifications are seen in the breast. IMPRESSION: BENIGN The previously described asymmetry disperses with additional views and is consistent with summation a rtifact. There is no mammographic evidence of malignancy. A 1 year screening mammogram is recommended. Findings and recommendations were conveyed to the patient during today's evaluation. This exam was interpreted at Station ID: [id number]. NOTE: For mammograms, a report in lay terms will be sent to the patient. Approximately 15% of breast malignancies will not be visualized mammographically. In the management of a palpable breast mass, a negative mammogram must not discourage biopsy of a clinically suspicious lesion. Electronically Signed By: Juan Manuel Fitzgerald M.D. aty/:04/10/2021 09:15:10 ACR BI-RADS Category 2: Benign Finding(s) 3342F PARENCHYMAL PATTERN: (D) - The breast(s) demonstrate(s) heterogeneously dense fibroglandular [place]. BI-RADS CATEGORY: (2) - 2 RECOMMENDATION: (ANNUAL) - Recommend routine annual screening mammography. [id number] 1 year screening LATERALITY: (B)
== END 2021-04-10 08:28 | disposition home or self-care (01) ==
LOC: DI 08:27
PROVIDERS: ATTEND Family Medicine
DX: R92.8 Other abnormal and inconclusive findings on diagnostic imaging of breast (principal)

== ENCOUNTER 2021-11-02 09:20 | Outpatient (CLI) | payer MEDICARE, OTHER ==
[2021-11-02 12:18] LABS: BASOPHILS % (AUTO) 0.3 %; EOSINOPHILS # (AUTO) 0.1 10^3/uL (0.0-0.7); EOSINOPHILS % (AUTO) 0.9 %; HCT - HEMATOCRIT 45.6 % (37.0-47.0); HGB - HEMOGLOBIN 14.4 g/dL (12.0-16.0); LYMPHOCYTES # (AUTO) 1.5 10^3/uL (1.5-3.5); LYMPHOCYTES % (AUTO) 22.7 %; MEAN CORPUSCULAR HEMOGLOBIN 29.4 pg (27.0-31.0); MEAN CORPUSCULAR HGB CONC 31.6 g/dL (32.0-36.0); MEAN CORPUSCULAR VOLUME 93.3 fL (81.0-99.0); MEAN PLATELET VOLUME 9.4 fL (7.9-10.8); MONOCYTES # (AUTO) 0.4 10^3/uL (0.0-1.0); MONOCYTES % (AUTO) 5.8 %; NEUTROPHILS # (AUTO) 4.7 10^3/uL (1.5-6.6); PLT - PLATELET COUNT 204 10^3/uL (130-450); RED BLOOD COUNT 4.89 10^6/uL (4.20-5.40); RED CELL DISTRIBUTION WIDTH 13.4 % (12.0-15.0); WHITE BLOOD COUNT 6.7 x10^3/uL (4.8-10.8)
[2021-11-02 12:38] LABS: ALBUMIN 4.5 g/dL (3.2-5.5); ALBUMIN/GLOBULIN RATIO 1.1 (1.0-2.2); ALKALINE PHOSPHATASE 60 IU/L (42-121); ALT ALANINE AMINOTRANSFERASE 32 IU/L (10-60); AST ASPARTATE AMINOTRANSFERASE 26 IU/L (10-42); BILIRUBIN,TOTAL 0.6 mg/dL (0.2-1.0); BUN - BLOOD UREA NITROGEN 15 mg/dL (6-20); CALCIUM 8.9 mg/dL (8.5-10.3); CARBON DIOXIDE - CO2 29 mmol/L (21-32); CHLORIDE 102 mmol/L (101-111); CHOL/HDL RATIO 2.4 (<4.4); CHOLESTEROL 176 mg/dL; CREATININE 0.8 mg/dL (0.4-1.0); GFR - MDRD 69 (>89); GLUCOSE 130 mg/dL (70-100); HDL CHOLESTEROL 72 mg/dL; LDL CHOLESTEROL,CALCULATED 89 mg/dL; LDL/HDL RATIO 1.2 (<4.4); POTASSIUM 3.8 mmol/L (3.5-5.0); SODIUM 141 mmol/L (135-145); TOTAL PROTEIN 8.5 g/dL (6.7-8.2); TRIGLYCERIDES 73 mg/dL; URIC ACID 3.2 mg/dL (2.6-7.2); VLDL CHOLESTEROL 15 mg/dL
[2021-11-02 12:42] LABS: THYROID STIMULATING HORMONE 2.35 uIU/mL (0.34-5.60)
[2021-11-02 13:28] LABS: ESTIMATED AVERAGE GLUCOSE 137 mg/dL (70-100); HEMOGLOBIN A1c% 6.4 % (4.27-6.07)
== END 2021-11-02 09:21 | disposition home or self-care (01) ==
LOC: LAB.N 09:20
PROVIDERS: ATTEND Family Medicine
DX: I10 Essential (primary) hypertension (principal); K22.5 Diverticulum of esophagus, acquired; M10.9 Gout, unspecified; E78.5 Hyperlipidemia, unspecified; M19.90 Unspecified osteoarthritis, unspecified site; K21.9 Gastro-esophageal reflux disease without esophagitis; R73.9 Hyperglycemia, unspecified
CPT/HCPCS: 36415; 80053; 80061; 83036; 83721; 84443; 84550; 85025

== ENCOUNTER 2022-01-28 11:22 | Emergency (ER) | payer MEDICARE, OTHER ==
[2022-01-28 11:36] VITALS: BP 155/59
[2022-01-28 12:34] LABS: BASOPHILS % (AUTO) 0.3 %; EOSINOPHILS # (AUTO) 0.1 10^3/uL (0.0-0.7); EOSINOPHILS % (AUTO) 1.9 %; HCT - HEMATOCRIT 39.5 % (37.0-47.0); HGB - HEMOGLOBIN 12.8 g/dL (12.0-16.0); LYMPHOCYTES # (AUTO) 1.3 10^3/uL (1.5-3.5); LYMPHOCYTES % (AUTO) 21.2 %; MEAN CORPUSCULAR HGB CONC 32.4 g/dL (32.0-36.0); MEAN CORPUSCULAR VOLUME 92.7 fL (81.0-99.0); MONOCYTES # (AUTO) 0.5 10^3/uL (0.0-1.0); MONOCYTES % (AUTO) 8.1 %; NEUTROPHILS % (AUTO) 68.2 %; PLT - PLATELET COUNT 196 10^3/uL (130-450); RED BLOOD COUNT 4.26 10^6/uL (4.20-5.40); RED CELL DISTRIBUTION WIDTH 13.2 % (12.0-15.0); WHITE BLOOD COUNT 5.9 x10^3/uL (4.8-10.8)
[2022-01-28 12:46] LABS: PT - PROTHROMBIN TIME 11.2 secs (9.9-12.6)
[2022-01-28 12:48] LABS: ALBUMIN 4.4 g/dL (3.2-5.5); ALBUMIN/GLOBULIN RATIO 1.2 (1.0-2.2); BILIRUBIN,TOTAL 0.5 mg/dL (0.2-1.0); CALCIUM 9.2 mg/dL (8.5-10.3); CREATININE 0.9 mg/dL (0.4-1.0); POTASSIUM 4.3 mmol/L (3.5-5.0)
--- OUTSIDE RECORDS SUMMARY | 2022-01-28 13:04 | EXTERNAL MEDICAL SUMMARY RPT | Continuity of Care Document ---
:1945 Author Organization [facility] Address [address] [place] [address] Phone Allergies and Intolerances date description facility type (no date) Penicillins [facility] (unknown) (no date) acetaminophen [facility] (unknown) (no date) ampicillin [facility] (unknown) (no date) azithromycin [facility] (unknown) (no date) cephalexin [facility] (unknown) (no date) oxycodone [facility] (unknown) Encounters No information. Functional Status No information. Immunizations No information. Medications date description facility [id number] Allopurinol 300 MG Oral Tablet [facility] [id number] Omeprazole 20 MG Enteric Coated Capsul e [facility] [id number]+0000 telmisartan 40 MG Oral Tablet [facility] [id number]+0000 clopidogrel 300 MG Oral Tablet [facility] [id number]+0000 Rosuvastatin calcium 40 MG Oral Tablet [facility] Problems No information. Procedures date description facility +0000 General Physician [facility] [id number] General Physician [facility] Results/Labs test date author facility value unit interpret ation Result panel 1 (unknown) (no (unknown) (unknown) (no value) (units (unk nown) date) unknown) (unknown) (no (unknown) (unknown) (no value) (units (unk nown) date) unknown) (unknown) (no (unknown) (unknown) [place], [place] (units ( unknown) date) [id number] unknown) (unknown) (no (unknown) (unknown) Draft (units (unkno wn) date) unknown) (unknown) (no (unknown) (unknown) Nurse Office (units (u nknown) date) Visit unknown) (unknown) (no (unknown) (unknown) [facility] (units (unknown) date) Center unknown) (unknown) (no (unknown) (unknown) (no value) (units (unk nown) date) unknown) (unknown) (no (unknown) (unknown) COVID-19 (units (u nknown) date) unknown) (unknown) (no (unknown) (unknown) [id number] (units (unkn own) date) unknown) (unknown) (no (unknown) (unknown) 11/16/21 (units (unkno wn) date) unknown) (unknown) (no (unknown) (unknown) Age/Sex: 76 / F (units (unknown) date) Date of unknown) Service: (unknown) (no (unknown) (unknown) Attending Dr: (units ( unknown) date) Juventino Singh MD unknown) (unknown) (no (unknown) (unknown) : 1945 (units (unknown) date) Acct:[id number] unknown) (unknown) (no (unknown) (unknown) Dept at (units (unkno wn) date) . unknown) (unknown) (no (unknown) (unknown) Documented By: (units (unknown) date) Juventino Singh MD unknown) 11/16/21 1044 (unknown) (no (unknown) (unknown) Evaluation/Scree (units (unknown) date) manuel for possible unknown) COVID-19 completed?: Yes- COVID-19 CPT (unknown) (no (unknown) (unknown) Intake (units (unkno wn) date) unknown) (unknown) (no (unknown) (unknown) Intake Note: (units (u nknown) date) unknown) (unknown) (no (unknown) (unknown) Loc: SLEEP (units (unk nown) date) unknown) (unknown) (no (unknown) (unknown) Note (units (unkno wn) date) unknown) (unknown) (no (unknown) (unknown) Patient here (units (un known) date) today for a unknown) pre-procedure COVID test.?Denies symptoms at this time. (unknown) (no (unknown) (unknown) Patient: (units (unkno wn) date) Sandy Mccallum H unknown) MR#: M (unknown) (no (unknown) (unknown) Reason For Visit (units (unknown) date) unknown) (unknown) (no (unknown) (unknown) Signed By: (units (unk nown) date) unknown) (unknown) (no (unknown) (unknown) Swabbing (units (unkno wn) date) procedure unknown) explained to patient, name and date confirmed.? Patient (unknown) (no (unknown) (unknown) This note may (units ( unknown) date) have been all or unknown) partially generated using voice recognition (unknown) (no (unknown) (unknown) Visit Reasons: (units (unknown) date) pre proccovid unknown) test / hugh / 11/18 (unknown) (no (unknown) (unknown) have occurred. (units (unknown) date) If there are any unknown) questions, please contact the Medical Records (unknown) (no (unknown) (unknown) may occur. (units (unk nown) date) Occasional unknown) wrong-word or 'sound-alike' substitutions may have (unknown) (no (unknown) (unknown) occurred due to (units (unknown) date) the inherent unknown) limitations of voice recognition software. Please (unknown) (no (unknown) (unknown) read the note (units ( unknown) date) carefully and unknown) recognize, using context, where these substitutions (unknown) (no (unknown) (unknown) software. (units (unkn own) date) Although every unknown) effort is made to edit content, home improvement installer errors (unknown) (no (unknown) (unknown) tolerated swab (units (unknown) date) well and had no unknown) additional questions. Result panel 2 (unknown) (no (unknown) (unknown) (no value) (units (unk nown) date) unknown) (unknown) (no (unknown) (unknown) (no value) (units (unk nown) date) unknown) (unknown) (no (unknown) (unknown) 11/16/21 1252 (units ( unknown) date) unknown) (unknown) (no (unknown) (unknown) JOY Villeda (units ( unknown) date) [id number] unknown) (unknown) (no (unknown) (unknown) Nurse Office (units (u nknown) date) Visit unknown) (unknown) (no (unknown) (unknown) Signed (units (unkno wn) date) unknown) (unknown) (no (unknown) (unknown) [facility] ([facility] ([facility] date[facility] Center unknown) (unknown) (no (unknown) (unknown) (no value) (units (unk nown) date) unknown) (unknown) (no (unknown) (unknown) COVID-19 (units (u nknown) date) unknown) (unknown) (no (unknown) (unknown) [id number] (units (unkn own) date) unknown) (unknown) (no (unknown) (unknown) 11/16/21 (units (unkno wn) date) unknown) (unknown) (no (unknown) (unknown) Age/Sex: 76 / F (units (unknown) date) Date of unknown) Service: (unknown) (no (unknown) (unknown) Attending Dr: (units ( unknown) date) Juventino Singh MD unknown) (unknown) (no (unknown) (unknown) : 1945 (units (unknown) date) Acct:[id number] unknown) (unknown) (no (unknown) (unknown) Dept at (units (unkno wn) date) . unknown) (unknown) (no (unknown) (unknown) Documented By: (units (unknown) date) Juventino Singh MD unknown) 11/16/21 1044 (unknown) (no (unknown) (unknown) Evaluation/Scree (units (unknown) date) manuel for possible unknown) COVID-19 completed?: Yes- COVID-19 CPT (unknown) (no (unknown) (unknown) Intake (units (unkno wn) date) unknown) (unknown) (no (unknown) (unknown) Intake Note: (units (u nknown) date) unknown) (unknown) (no (unknown) (unknown) Loc: SLEEP (units (unk nown) date) unknown) (unknown) (no (unknown) (unknown) Note (units (unkno wn) date) unknown) (unknown) (no (unknown) (unknown) Patient here (units (un known) date) today for a unknown) pre-procedure COVID test.?Denies symptoms at this time. (unknown) (no (unknown) (unknown) Patient: (units (unkno wn) date) Sandy Mcacllum H unknown) MR#: M (unknown) (no (unknown) (unknown) Reason For Visit (units (unknown) date) unknown) (unknown) (no (unknown) (unknown) Signed By: (units (unk nown) date) <Electronically unknown) signed by Juventino Singh MD> (unknown) (no (unknown) (unknown) Swabbing (units (unkno wn) date) procedure unknown) explained to patient, name and date confirmed.? Patient (unknown) (no (unknown) (unknown) This note may (units ( unknown) date) have been all or unknown) partially generated using voice recognition (unknown) (no (unknown) (unknown) Visit Reasons: (units (unknown) date) pre proccovid unknown) test / roby11/18 (unknown) (no (unknown) (unknown) have occurred. (units (unknown) date) If there are any unknown) questions, please contact the Medical Records (unknown) (no (unknown) (unknown) may occur. (units (unk nown) date) Occasional unknown) wrong-word or 'sound-alike' substitutions may have (unknown) (no (unknown) (unknown) occurred due to (units (unknown) date) the inherent unknown) limitations of voice recognition software. Please (unknown) (no (unknown) (unknown) read the note (units ( unknown) date) carefully and unknown) recognize, using context, where these substitutions (unknown) (no (unknown) (unknown) software. (units (unkn own) date) Although every unknown) effort is made to edit content, home improvement installer errors (unknown) (no (unknown) (unknown) tolerated swab (units (unknown) date) well and had no unknown) additional questions. Result panel 3 (unknown) (no date) (unknown) (unknown) Negative (units (unkn own) unknown) Result panel 4 (unknown) (no (unknown) (unknown) (no value) (units (unk nown) date) unknown) (unknown) (no (unknown) (unknown) (no value) (units (unk nown) date) unknown) (unknown) (no (unknown) (unknown) Date of Service: (units (unknown) date) 11/18/21 unknown) (unknown) (no (unknown) (unknown) (no value) (units (unk nown) date) unknown) (unknown) (no (unknown) (unknown) - (units (unkno wn) date) unknown) (unknown) (no (unknown) (unknown) Allergies (units (unkn own) date) unknown) (unknown) (no (unknown) (unknown) History + (units (unkn own) date) Physical Report unknown) (unknown) (no (unknown) (unknown) Home Medications (units (unknown) date) unknown) (unknown) (no (unknown) (unknown) [facility] (units (unknown) date) [address] [place] [address] unknown) [place] [address] (unknown) (no (unknown) (unknown) (no value) (units (unk nown) date) unknown) (unknown) (no (unknown) (unknown) 11/18/21 (units (unkno wn) date) unknown) (unknown) (no (unknown) (unknown) Medication (units (unk nown) date) Instructions unknown) Recorded Confirmed Type (unknown) (no (unknown) (unknown) (past 8 hours): (units (unknown) date) unknown) (unknown) (no (unknown) (unknown) [id number] (units (unkn own) date) unknown) (unknown) (no (unknown) (unknown) 07:49 (units (unkno wn) date) unknown) (unknown) (no (unknown) (unknown) Age/Sex: 76 / F (units (unknown) date) unknown) (unknown) (no (unknown) (unknown) Allergy/AdvReac (units (unknown) date) Type Severity unknown) Reaction Status Date / Time (unknown) (no (unknown) (unknown) Assessment + (units (u nknown) date) Plan unknown) (unknown) (no (unknown) (unknown) Assessment + (units (u nknown) date) Plan narrative: unknown) (unknown) (no (unknown) (unknown) Blood Pressure (units (unknown) date) 179/73 H unknown) (unknown) (no (unknown) (unknown) Cardiac exam (units (u nknown) date) reveals no S3 or unknown) murmur. (unknown) (no (unknown) (unknown) Chest clear to (units (unknown) date) auscultation unknown) percussion (unknown) (no (unknown) (unknown) Chief complaint: (units (unknown) date) SDC unknown) (unknown) (no (unknown) (unknown) Critical Care (units ( unknown) date) time: unknown) (unknown) (no (unknown) (unknown) : 1945 (units (unknown) date) Acct:[id number] unknown) (unknown) (no (unknown) (unknown) Date Patient (units (u nknown) date) Seen: 11/18/21 unknown) (unknown) (no (unknown) (unknown) Exam (units (unkno wn) date) unknown) (unknown) (no (unknown) (unknown) Exam Narrative: (units (unknown) date) unknown) (unknown) (no (unknown) (unknown) Family + Social (units (unknown) date) History unknown) (unknown) (no (unknown) (unknown) History of (units (unk nown) date) Present Illness unknown) (unknown) (no (unknown) (unknown) History of (units (unk nown) date) Zenker's unknown) diverticulotomy. Need to evaluate area and the distal (unknown) (no (unknown) (unknown) Home Medications (units (unknown) date) and Allergies unknown) (unknown) (no (unknown) (unknown) I spent a total (units (unknown) date) of [] minutes of unknown) critical care time on this patient's care (unknown) (no (unknown) (unknown) Meds (units (unkno wn) date) unknown) (unknown) (no (unknown) (unknown) Narrative (units (unkn own) date) unknown) (unknown) (no (unknown) (unknown) Narrative: (units (unk nown) date) unknown) (unknown) (no (unknown) (unknown) Oropharynx free (units (unknown) date) of lesions unknown) (unknown) (no (unknown) (unknown) Oxygen Delivery (units (unknown) date) Method Room unknown) Air (unknown) (no (unknown) (unknown) Oxygen Flow Rate (units (unknown) date) 0 unknown) (unknown) (no (unknown) (unknown) Patient History (units (unknown) date) unknown) (unknown) (no (unknown) (unknown) Patient: (units (unkno wn) date) Sandy Mccallum H unknown) MR#: M (unknown) (no (unknown) (unknown) Penicillins (units (un known) date) Allergy unknown) Anaphylaxis Verified 11/18/21 07:44 (unknown) (no (unknown) (unknown) Provider: (units (unkn own) date) Maricel Lara unknown) (unknown) (no (unknown) (unknown) Pulse Oximetry (units (unknown) date) 99 unknown) (unknown) (no (unknown) (unknown) Pulse Rate 74 (units ( unknown) date) unknown) (unknown) (no (unknown) (unknown) Regurgitation (units ( unknown) date) status post unknown) removal of a Zenker's diverticulum. Also with mild (unknown) (no (unknown) (unknown) Respiratory Rate (units (unknown) date) 16 unknown) (unknown) (no (unknown) (unknown) Signed (units (unkno wn) date) By:<Electronicall unknown) y signed by Maricel Lara MD>11/18/21 0902 (unknown) (no (unknown) (unknown) Smoking Status (units (unknown) date) Never smoker unknown) (unknown) (no (unknown) (unknown) Social History: (units (unknown) date) unknown) (unknown) (no (unknown) (unknown) Substance Use (units ( unknown) date) Type does not unknown) use (unknown) (no (unknown) (unknown) Temperature 96.4 (units (unknown) date) F L unknown) (unknown) (no (unknown) (unknown) Time Spent With (units (unknown) date) Patient unknown) (unknown) (no (unknown) (unknown) Tobacco + (units (unkn own) date) Substance use: unknown) (unknown) (no (unknown) (unknown) Vital Signs (units (un known) date) unknown) (unknown) (no (unknown) (unknown) acetaminophen (units ( unknown) date) [From Percocet] unknown) AdvReac Vomiting Verified 11/18/21 07:44 (unknown) (no (unknown) (unknown) alcohol intake (units (unknown) date) never unknown) (unknown) (no (unknown) (unknown) allopurinol 300 (units (unknown) date) mg tablet 300 mg unknown) PO DAILY 11/18/21 11/18/21 History (unknown) (no (unknown) (unknown) ampicillin (units (unk nown) date) AdvReac Vomiting unknown) Verified 11/18/21 07:44 (unknown) (no (unknown) (unknown) azithromycin (units (u nknown) date) AdvReac Vomiting unknown) Verified 11/18/21 07:44 (unknown) (no (unknown) (unknown) capsule,extended (units (unknown) date) release 24 hr, unknown) (unknown) (no (unknown) (unknown) cephalexin [From (units (unknown) date) Keflex] AdvReac unknown) Vomiting Verified 11/18/21 07:44 (unknown) (no (unknown) (unknown) clopidogrel 300 (units (unknown) date) mg tablet 75 mg unknown) PO DAILY 11/18/21 11/18/21 History (unknown) (no (unknown) (unknown) controlled (units (unk nown) date) unknown) (unknown) (no (unknown) (unknown) diltiazem HCl (units ( unknown) date) 180 mg 180 mg PO unknown) DAILY 11/18/21 11/18/21 History (unknown) (no (unknown) (unknown) dysphagia. (units (unk nown) date) unknown) (unknown) (no (unknown) (unknown) esophagus due to (units (unknown) date) increased reflux. unknown) Risks, benefits, alternatives have been (unknown) (no (unknown) (unknown) explained. (units (unk nown) date) unknown) (unknown) (no (unknown) (unknown) household (units (unkn own) date) members unknown) significant other,none (unknown) (no (unknown) (unknown) omeprazole 20 mg (units (unknown) date) capsule,delayed unknown) 20 mg PO DAILY 11/18/21 11/18/21 History (unknown) (no (unknown) (unknown) oxycodone [From (units (unknown) date) Percocet] AdvReac unknown) Vomiting Verified 11/18/21 07:44 (unknown) (no (unknown) (unknown) release (units (unkno wn) date) unknown) (unknown) (no (unknown) (unknown) rosuvastatin 40 (units (unknown) date) mg tablet 40 mg unknown) PO DAILY 11/18/21 11/18/21 History (unknown) (no (unknown) (unknown) telmisartan 40 (units (unknown) date) mg tablet unknown) (Micardis) 40 mg PO DAILY 11/18/21 11/18/21 History (unknown) (no (unknown) (unknown) today; this time (units (unknown) date) is exclusive of unknown) procedural time. Result panel 5 (unknown) (no (unknown) (unknown) (no value) (units (unk nown) date) unknown) (unknown) (no (unknown) (unknown) Date of Service: (units (unknown) date) 11/18/21 unknown) (unknown) (no (unknown) (unknown) EGD Note (units (unkno wn) date) unknown) (unknown) (no (unknown) (unknown) [facility] (units (unknown) date) [address] [place] [address] Street unknown) [place] [address] (unknown) (no (unknown) (unknown) (no value) (units (unk nown) date) unknown) (unknown) (no (unknown) (unknown) [phone] (units (unkn own) date) unknown) (unknown) (no (unknown) (unknown) 1. (units (unkno wn) date) unknown) (unknown) (no (unknown) (unknown) After informed (units (unknown) date) consent was unknown) obtained the patient was placed in left lateral (unknown) (no (unknown) (unknown) Age/Sex: 76 / F (units (unknown) date) unknown) (unknown) (no (unknown) (unknown) Blood loss none (units (unknown) date) unknown) (unknown) (no (unknown) (unknown) Complications (units ( unknown) date) none unknown) (unknown) (no (unknown) (unknown) : 1945 (units (unknown) date) Acct:[id number] unknown) (unknown) (no (unknown) (unknown) Date of (units (unkno wn) date) procedure: unknown) 11/18/21 (unknown) (no (unknown) (unknown) EGD (units (unkno wn) date) unknown) (unknown) (no (unknown) (unknown) Findings (units (unkno wn) date) unknown) (unknown) (no (unknown) (unknown) Increased (units (unkn own) date) symptoms of reflux unknown) and regurgitation status post Zenker's (unknown) (no (unknown) (unknown) Indications: (units (u nknown) date) unknown) (unknown) (no (unknown) (unknown) Operative (units (unkn own) date) Date/Time/Diagnose unknown) s (unknown) (no (unknown) (unknown) Patient: (units (unkno wn) date) Sandy Mccallum H unknown) MR#: M (unknown) (no (unknown) (unknown) Pre-op diagnosis: (units (unknown) date) See indication and unknown) findings (unknown) (no (unknown) (unknown) Procedure + (units (un known) date) Clinicians unknown) (unknown) (no (unknown) (unknown) Procedure Notes (units (unknown) date) unknown) (unknown) (no (unknown) (unknown) Procedure in (units (u nknown) date) detail: unknown) (unknown) (no (unknown) (unknown) Provider: (units (unkn own) date) Maricel Lara MD unknown) (unknown) (no (unknown) (unknown) Sedation mac (units (u nknown) date) unknown) (unknown) (no (unknown) (unknown) Signed By: (units (unk nown) date) unknown) (unknown) (no (unknown) (unknown) Study performed: (units (unknown) date) unknown) (unknown) (no (unknown) (unknown) decubitus (units (unkn own) date) position. The unknown) video upper scope was placed into the oropharynx and (unknown) (no (unknown) (unknown) diverticulotomy (units (unknown) date) unknown) (unknown) (no (unknown) (unknown) duodenum were (units ( unknown) date) carefully unknown) examined. On withdrawal, retroflexed view the GE (unknown) (no (unknown) (unknown) junction was (units (un known) date) performed. The unknown) scope was removed. The patient tolerated procedure (unknown) (no (unknown) (unknown) well. (units (unkno wn) date) unknown) (unknown) (no (unknown) (unknown) with the patient's (units (unknown) date) help swallowed unknown) into the esophagus. The esophagus stomach and Result panel 6 (unknown) (no (unknown) (unknown) (no value) (units (unk nown) date) unknown) (unknown) (no (unknown) (unknown) Date of Service: (units (unknown) date) 11/18/21 unknown) (unknown) (no (unknown) (unknown) EGD Note (units (unkno wn) date) unknown) (unknown) (no (unknown) (unknown) [facility] (units (unknown) date) [address] unknown) [place] [address] (unknown) (no (unknown) (unknown) (no value) (units (unk nown) date) unknown) (unknown) (no (unknown) (unknown) [phone] (units (unkn own) date) unknown) (unknown) (no (unknown) (unknown) 1. Normal (units (unkn own) date) hypopharynx and unknown) upper esophagus (unknown) (no (unknown) (unknown) 2. Normal distal (units (unknown) date) esophagus with unknown) completely normal squamocolumnar junction. This (unknown) (no (unknown) (unknown) 3. No evidence of (units (unknown) date) hiatal hernia on unknown) straight or retroflexed view. (unknown) (no (unknown) (unknown) 4. Completely (units ( unknown) date) normal stomach unknown) (unknown) (no (unknown) (unknown) 5. Normal (units (unkn own) date) duodenal bulb and unknown) sweep (unknown) (no (unknown) (unknown) After informed (units (unknown) date) consent was unknown) obtained the patient was placed in left lateral (unknown) (no (unknown) (unknown) Age/Sex: 76 / F (units (unknown) date) unknown) (unknown) (no (unknown) (unknown) Blood loss none (units (unknown) date) unknown) (unknown) (no (unknown) (unknown) Complications (units ( unknown) date) none unknown) (unknown) (no (unknown) (unknown) : 1945 (units (unknown) date) Acct:[id number] unknown) (unknown) (no (unknown) (unknown) Date of (units (unkno wn) date) procedure: unknown) 11/18/21 (unknown) (no (unknown) (unknown) EGD (units (unkno wn) date) unknown) (unknown) (no (unknown) (unknown) Findings (units (unkno wn) date) unknown) (unknown) (no (unknown) (unknown) Increased (units (unkn own) date) symptoms of reflux unknown) and regurgitation status post Zenker's (unknown) (no (unknown) (unknown) Indications: (units (u nknown) date) unknown) (unknown) (no (unknown) (unknown) Sandy should (units (unknown) date) restart her unknown) medications and concentrate on lifestyle (unknown) (no (unknown) (unknown) Operative (units (unkn own) date) Date/Time/Diagnose unknown) s (unknown) (no (unknown) (unknown) Patient: (units (unkno wn) date) Sandy Mccallum H unknown) MR#: M (unknown) (no (unknown) (unknown) Pre-op diagnosis: (units (unknown) date) See indication and unknown) findings (unknown) (no (unknown) (unknown) Procedure + (units (un known) date) Clinicians unknown) (unknown) (no (unknown) (unknown) Procedure Notes (units (unknown) date) unknown) (unknown) (no (unknown) (unknown) Procedure in (units (u nknown) date) detail: unknown) (unknown) (no (unknown) (unknown) Provider: (units (unkn own) date) Maricel Lara MD unknown) (unknown) (no (unknown) (unknown) Sedation mac (units (u nknown) date) unknown) (unknown) (no (unknown) (unknown) She should (units (unk nown) date) restart her Plavix unknown) now. (unknown) (no (unknown) (unknown) Signed (units (unkno wn) date) By:<Electronically unknown) signed by Maricel Lara MD>11/18/21 0920 (unknown) (no (unknown) (unknown) Study performed: (units (unknown) date) unknown) (unknown) (no (unknown) (unknown) decubitus (units (unkn own) date) position. The unknown) video upper scope was placed into the oropharynx and (unknown) (no (unknown) (unknown) diverticulotomy (units (unknown) date) unknown) (unknown) (no (unknown) (unknown) doing if she has (units (unknown) date) concerns. unknown) (unknown) (no (unknown) (unknown) duodenum were (units ( unknown) date) carefully unknown) examined. On withdrawal, retroflexed view the GE (unknown) (no (unknown) (unknown) junction was (units (un known) date) performed. The unknown) scope was removed. The patient tolerated procedure (unknown) (no (unknown) (unknown) modifications. (units (unknown) date) She can follow-up unknown) with me in a month to let me know how she is (unknown) (no (unknown) (unknown) was of normal (units ( unknown) date) tightness unknown) (unknown) (no (unknown) (unknown) well. (units (unkno wn) date) unknown) (unknown) (no (unknown) (unknown) with the patient's (units (unknown) date) help swallowed unknown) into the esophagus. The esophagus stomach and Social History date description facility (no date) Never smoked tobacco (finding) [facility] Vital Signs date measurement value units +0000 BMI BMI 24.8 kg/m2 [id number]+0000 BP_diastolic BP_diastolic 62 mm[H g] [id number]+0000 BP_systolic BP_systolic 156 mm[Hg] [id number]+0000 heart_rate heart_rate 61 /min [id number] height_metric height_metric 157.48 cm [id number] height_standard height_standard 62 in [id number]+0000 respiration_rate respiration_rate 16 /min [id number]+0000 temperature_metric temperature_metric 36.22 C [id number]+0000 temperature_standard temperature_standard 9 7.2 F [id number]+0000 weight_metric weight_metric 61.68 kg [id number]+0000 weight_standard weight_standard 135.98 lb
[2022-01-28] MEDS ORDERED: iohexoL-300 100 ML VIAL ONE (15:09)
[2022-01-28] MEDS ORDERED: iohexoL-300 100 ML VIAL IVP ONE (15:45)
--- NOTE | 2022-01-28 16:09 | CT Report ---
PROCEDURE: Abdomen/Pelvis W INDICATIONS: MIDEPIGASTRIC/LLQ PAIN, MELENA CONTRAST: IV CONTRAST: Optiray 320 ml: 100 PO CONTRAST: *NO PO CONTRAST TECHNIQUE: After the administration of IV contrast, 5 mm thick sections acquired from the diaphragms to the symp hysis. 5 mm thick coronal and sagittal reformats were acquired. For radiation dose reduction, the f ollowing was used: automated exposure control, adjustment of mA and/or kV according to patient size. COMPARISON: None. FINDINGS: Image quality: Excellent. ABDOMEN: Lung bases: Dependent atelectasis in posterior aspect of bilateral lung scott are seen. Heart size i s normal. Solid organs: Liver and spleen are normal in size and enhancement. Gallbladder is surgically absent . Biliary system is non dilated. Pancreas enhances normally. No adrenal nodules. Kidneys demonstr ate normal size and enhancement, without hydronephrosis. Peritoneum and bowel: There is no bowel obstruction. No stomach or small bowel wall thickening. Appen azul is visualized and is within normal limits. Mild wall thickening and narrowing of the lumen with p ericolonic fat stranding is seen involving proximal sigmoid colon in left lower quadrant abdomen. A f ew colonic diverticuli are seen. Finding is concerning for developing diverticulitis in this area. Un derlying neoplastic process cannot be entirely excluded. There is no abscess collection. No free flui d of free air. No other area of abnormal colonic wall thickening. Nodes and vessels: No retroperitoneal or mesenteric adenopathy by size criteria. Aorta and inferior vena cava are normal in size. Moderate atherosclerotic calcifications in the abdominal aorta and bi lateral iliac vessels are seen. Miscellaneous: No ventral hernias. PELVIS: Genitourinary: Bladder wall thickness is normal. Miscellaneous: No inguinal hernias or adenopathy. Bones: No suspicious bony lesions. No vertebral body compression fractures. 4 mm anterolisthesis of L4 on L5 is seen. Degenerative disc disease throughout lower thoracic and lumbar spine is seen. IMPRESSION: 1. Wall thickening and mild pericolonic fat stranding involving proximal portion of sigmoid colon con cerning for developing diverticulitis. Underlying neoplastic process cannot be entirely excluded give n patient's history of melena. GI correlation and follow-up is recommended. 2. No other area of abnormal bowel wall thickening. Normal appendix. No bowel obstruction. No free fl uid of free air. No abscess collection. 3. Suggestion of prior cholecystectomy. Reviewed by: Connor Kowalski MD on 01/28/2022 4:08 PM PDT Approved by: Connor Kowalski MD on 01/28/2022 4:08 PM PDT Station ID: [id number]
--- NOTE | 2022-01-28 16:30 | ED Physician Documentation ---
History of Present Illness - Stated complaint Stated Complaint: BLOODY STOOL - Chief complaint Chief Complaint: Abd Pain - History obtained from History obtained from: Patient - History of Present Illness Timing: Last night - Additonal information Additional information: 76-year-old female with history of hypertension, history of arthritis on meloxicam and Plavix presents for 1 day of generalized lower abdominal cramping as well as 2 episodes of blood in her stool. Patient states since last night the cramping is accompanied by foul-smelling gas and bloating sensation. She states that this morning when she went to the restroom there was bright red blood in the toilet bowl. Additionally her stools seemed darker in color. This is never happened before. Patient states that she had an upper endoscopy performed 2 months ago and was normal. Denies fevers, chills, constipation, diarrhea, weight loss. Review of Systems Ten Systems: 10 systems reviewed and negative Constitutional: denies: Fever, Chills Throat: denies: Dental pain / toothache, Oral lesions / sores, Sore throat Cardiac: denies: Chest pain / pressure, Palpitations Respiratory: denies: Dyspnea, Cough GI: reports: Abdominal Pain (lower cramping), Bloody / black stool. 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 - Present Medications Home Medications: Ambulatory Orders Medication Instructions Recorded Confirmed Atorvastatin Calcium 40 mg PO DAILY 01/29/13 12/18/14 Metoprolol Succinate 50 mg PO DAILY 01/29/13 12/18/14 Telmisartan [Micardis] 40 mg PO DAILY 01/29/13 12/18/14 allopurinoL [Allopurinol] 300 mg PO DAILY 01/29/13 12/18/14 diltiaZEM CD [Cardizem Cd] 120 mg PO DAILY 06/11/14 12/18/14 Ubidecarenone [Coq-10] 100 mg PO DAILY 12/18/14 12/18/14 Ciprofloxacin HCl 1 tablet PO BID 10 Days #20 tablet 01/28/22 metroNIDAZOLE [Flagyl] 500 mg PO TID #30 tablet 01/28/22 - Allergies Allergies/Adverse Reactions: Allergies Allergy/AdvReac Type Severity Reaction Status Date / Time procainamide HCl * Allergy Severe Respiratory Verified 10/17/17 01:47 [From Pronestyl] cephalexin monohydrate * Allergy Intermediate Hives Verified 10/17/17 01:47 [From Keflex] Penicillins Allergy Intermediate Respiratory Verified 10/17/17 01:47 oxycodone HCl * Allergy Nausea Verified 10/17/17 01:47 [From Percodan] oxycodone terephthalate * Allergy Nausea Verified 10/17/17 01:47 [From Percodan] - Social History Does the pt smoke?: No Smoking Status: Never smoker Does the pt drink ETOH?: No Does the pt have substance abuse?: No - Immunizations Immunizations are current?: Yes - POLST Patient has POLST: No PD ED PE NORMAL - Vitals Vital signs reviewed: Yes - General General: Alert and oriented X 3, No acute distress, Well developed/nourished - HEENT HEENT: Atraumatic, PERRL, EOMI, Ears normal, Moist mucous membranes - Neck Neck: Supple, no meningeal sign, No bony TTP, No adenopathy - Cardiac Cardiac: No gallop, No rub, Strong equal pulses - Respiratory Respiratory: No respiratory distress, Clear bilaterally - Abdomen Abdomen: Soft, Non tender, Non distended, No organomegaly, Other (no rebound, no guarding) - Rectal Rectal: Deferred - Back Back: No CVA TTP, No spinal TTP - Derm Derm: Normal color, Warm and dry, No rash - Extremities Extremities: No deformity, No tenderness to palpate, Normal ROM s pain, No edema - Neuro Neuro: Alert and oriented X 3, acid leveler 2-12 intact, No motor deficit, No sensory de ficit, Normal speech - Psych Psych: Normal mood Results - Vitals Vitals: Oxygen O2 Source Room air - Labs Labs: Laboratory Tests 01/28/22 01/28/22 01/28/22 12:25 12:25 12:25 WBC 5.9 RBC 4.26 Hgb 12.8 Hct 39.5 MCV 92.7 MCH 30.0 MCHC 32.4 RDW 13.2 Plt Count 196 MPV 9.0 Neut # (Auto) 4.0 Lymph # (Auto) 1.3 L Swisher # (Auto) 0.5 Eos # (Auto) 0.1 Baso # (Auto) 0.0 Absolute Nucleated RBC 0.00 Nucleated RBC % 0.0 PT 11.2 INR 1.0 Sodium Potassium Chloride Carbon Dioxide Anion Gap BUN Creatinine Estimated GFR (MDRD) Glucose Calcium Total Bilirubin AST ALT Alkaline Phosphatase Total Protein Albumin Globulin Albumin/Globulin Ratio Blood Type B POSITIVE Blood Type Recheck Antibody Screen NEGATIVE 01/28/22 01/28/22 12:25 13:38 WBC RBC Hgb Hct MCV MCH MCHC RDW Plt Count MPV Neut # (Auto) Lymph # (Auto) Swisher # (Auto) Eos # (Auto) Baso # (Auto) Absolute Nucleated RBC Nucleated RBC % PT INR Sodium 140 Potassium 4.3 Chloride 102 Carbon Dioxide 30 Anion Gap 8.0 BUN 26 H Creatinine 0.9 Estimated GFR (MDRD) 61 L Glucose 102 H Calcium 9.2 Total Bilirubin 0.5 AST 27 ALT 27 Alkaline Phosphatase 57 Total Protein 8.0 Albumin 4.4 Globulin 3.6 Albumin/Globulin Ratio 1.2 Blood Type Blood Type Recheck B POSITIVE Antibody Screen PD MEDICAL DECISION MAKING - ED course Complexity details: reviewed old records, reviewed results, re-evaluated patie nt, considered differential, d/w patient, d/w family ED course: Patient with 1 day of lower abdominal cramping with blood in her stools. Hemodynamically stable, abdomen is soft, no reproducible tenderness to palpation. Patient reports recent negative upper endoscopy less than 2 months ago. Labs show hemoglobin within normal range, CT scan shows diverticulitis, cannot rule out malignancy.. Given patient's recent negative upper endoscopy and CT findings patient will be discharged home on antibiotics.Patient and informed of CT results at bedside. Counseled on the importance of PCP follow up. Counseled to return immediately if new or worsening symptoms develop despite antibiotic therapy. Patient and in agreement with plan. All questions answered at time of discharge. Departure - Departure Disposition: 01 Home, Self Care Clinical Impression: Diverticulitis Condition: Stable Instructions: Diverticulitis Dc, ED Diverticulitis Prescriptions: Ciprofloxacin HCl 1 tablet PO BID 10 Days #20 tablet metroNIDAZOLE [Flagyl] 500 mg PO TID #30 tablet Comments: Please follow-up as soon as possible with your GI doctor. Take all your antibiotics as prescribed. Discharge Date/Time: 01/28/22 16:48
== END 2022-01-28 16:48 | disposition home or self-care (01) ==
LOC: ED 11:22
DX: K57.32 Diverticulitis of large intestine without perforation or abscess without bleeding (principal); I10 Essential (primary) hypertension
CPT/HCPCS: 36415; 74177; 80053; 85025; 85610; 86850; 86900; 86901; 99284; Q9967

== ENCOUNTER 2022-02-02 10:14 | Outpatient (CLI) | payer MEDICARE, OTHER ==
[2022-02-02 12:26] LABS: BASOPHILS % (AUTO) 0.6 %; EOSINOPHILS # (AUTO) 0.1 10^3/uL (0.0-0.7); EOSINOPHILS % (AUTO) 1.2 %; HCT - HEMATOCRIT 40.9 % (37.0-47.0); HGB - HEMOGLOBIN 13.3 g/dL (12.0-16.0); LYMPHOCYTES # (AUTO) 1.4 10^3/uL (1.5-3.5); LYMPHOCYTES % (AUTO) 21.2 %; MEAN CORPUSCULAR HEMOGLOBIN 30.2 pg (27.0-31.0); MEAN CORPUSCULAR HGB CONC 32.5 g/dL (32.0-36.0); MEAN PLATELET VOLUME 9.5 fL (7.9-10.8); MONOCYTES # (AUTO) 0.5 10^3/uL (0.0-1.0); MONOCYTES % (AUTO) 8.1 %; NEUTROPHILS # (AUTO) 4.6 10^3/uL (1.5-6.6); NEUTROPHILS % (AUTO) 68.6 %; PLT - PLATELET COUNT 233 10^3/uL (130-450); RED CELL DISTRIBUTION WIDTH 13.3 % (12.0-15.0); WHITE BLOOD COUNT 6.7 x10^3/uL (4.8-10.8)
[2022-02-02 12:33] LABS: CALCIUM 8.9 mg/dL (8.5-10.3); CREATININE 0.9 mg/dL (0.4-1.0); POTASSIUM 3.9 mmol/L (3.5-5.0)
[2022-02-02 12:36] LABS: ESTIMATED AVERAGE GLUCOSE 137 mg/dL (70-100); HEMOGLOBIN A1c% 6.4 % (4.27-6.07)
[2022-02-02 12:58] LABS: MICROALBUM/CREATININE RATIO,UR 6.1 ug/mg (<30.0); MICROALBUMIN,URINE 3.1 mg/dL (0-300.0)
== END 2022-02-02 10:15 | disposition home or self-care (01) ==
LOC: LAB.N 10:14
PROVIDERS: ATTEND Family Medicine
DX: E11.9 Type 2 diabetes mellitus without complications (principal); R19.7 Diarrhea, unspecified; M19.90 Unspecified osteoarthritis, unspecified site; K21.9 Gastro-esophageal reflux disease without esophagitis
CPT/HCPCS: 36415; 80048; 82043; 82570; 83036; 85025

== ENCOUNTER 2022-07-28 08:00 | Outpatient (CLI) | payer MEDICARE, OTHER | END 2022-07-28 23:59 | disposition home or self-care (01) | LOC: LAB.N 08:00 | PROVIDERS: ATTEND Family Medicine | DX: R19.7 Diarrhea, unspecified (principal) | CPT/HCPCS: 83630; 87045; 87046; 87329; 87427; 87493 ==

== ENCOUNTER 2022-09-01 09:03 | Outpatient (CLI) | payer MEDICARE, OTHER ==
[2022-09-01 12:18] LABS: BASOPHILS % (AUTO) 0.3 %; EOSINOPHILS # (AUTO) 0.1 10^3/uL (0.0-0.7); EOSINOPHILS % (AUTO) 1.2 %; HCT - HEMATOCRIT 44.8 % (37.0-47.0); HGB - HEMOGLOBIN 13.8 g/dL (12.0-16.0); LYMPHOCYTES # (AUTO) 1.4 10^3/uL (1.5-3.5); LYMPHOCYTES % (AUTO) 19.5 %; MEAN CORPUSCULAR HEMOGLOBIN 29.2 pg (27.0-31.0); MEAN CORPUSCULAR HGB CONC 30.8 g/dL (32.0-36.0); MEAN CORPUSCULAR VOLUME 94.9 fL (81.0-99.0); MEAN PLATELET VOLUME 9.8 fL (7.9-10.8); MONOCYTES # (AUTO) 0.5 10^3/uL (0.0-1.0); MONOCYTES % (AUTO) 6.9 %; NEUTROPHILS # (AUTO) 5.2 10^3/uL (1.5-6.6); PLT - PLATELET COUNT 214 10^3/uL (130-450); RED BLOOD COUNT 4.72 10^6/uL (4.20-5.40); RED CELL DISTRIBUTION WIDTH 13.1 % (12.0-15.0); WHITE BLOOD COUNT 7.2 x10^3/uL (4.8-10.8)
[2022-09-01 12:43] LABS: ALBUMIN 4.1 g/dL (3.2-5.5); ALBUMIN/GLOBULIN RATIO 1.2 (1.0-2.2); ALKALINE PHOSPHATASE 52 IU/L (42-121); ALT ALANINE AMINOTRANSFERASE 27 IU/L (10-60); AST ASPARTATE AMINOTRANSFERASE 27 IU/L (10-42); BILIRUBIN,TOTAL 0.6 mg/dL (0.2-1.0); BUN - BLOOD UREA NITROGEN 15 mg/dL (6-20); CALCIUM 9.1 mg/dL (8.5-10.3); CARBON DIOXIDE - CO2 30 mmol/L (21-32); CHLORIDE 103 mmol/L (101-111); CHOL/HDL RATIO 2.3 (<4.4); CHOLESTEROL 156 mg/dL; CREATININE 0.8 mg/dL (0.4-1.0); GFR - MDRD 69 (>89); GLUCOSE 127 mg/dL (70-100); HDL CHOLESTEROL 68 mg/dL; LDL CHOLESTEROL,CALCULATED 76 mg/dL; LDL/HDL RATIO 1.1 (<4.4); POTASSIUM 4.1 mmol/L (3.5-5.0); SODIUM 142 mmol/L (135-145); TOTAL PROTEIN 7.5 g/dL (6.7-8.2); TRIGLYCERIDES 60 mg/dL; VLDL CHOLESTEROL 12 mg/dL
[2022-09-01 12:53] LABS: ESTIMATED AVERAGE GLUCOSE 134 mg/dL (70-100); HEMOGLOBIN A1c% 6.3 % (4.27-6.07); THYROID STIMULATING HORMONE 1.96 uIU/mL (0.34-5.60)
== END 2022-09-01 09:04 | disposition home or self-care (01) ==
LOC: LAB.N 09:03
PROVIDERS: ATTEND Family Medicine
DX: I10 Essential (primary) hypertension (principal); K57.92 Diverticulitis of intestine, part unspecified, without perforation or abscess without bleeding; E11.9 Type 2 diabetes mellitus without complications; M19.90 Unspecified osteoarthritis, unspecified site; K22.5 Diverticulum of esophagus, acquired; M60.9 Myositis, unspecified
CPT/HCPCS: 36415; 80053; 80061; 83036; 83721; 84443; 85025

== ENCOUNTER 2022-12-27 12:45 | Outpatient (CLI) | payer MEDICARE, OTHER ==
[2022-12-27 13:11] LABS: BILIRUBIN,URINE NEGATIVE (NEGATIVE); GLUCOSE, URINE (UA) NEGATIVE (NEGATIVE); KETONES,URINE (UA) NEGATIVE (NEGATIVE); LEUKOCYTE ESTERASE, URINE NEGATIVE (NEGATIVE); NITRITE,URINE NEGATIVE (NEGATIVE); OCCULT BLOOD,URINE NEGATIVE (NEGATIVE); PH,URINE 5.5 PH (5.0-7.5); PROTEIN,URINE NEGATIVE (NEGATIVE); UROBILINOGEN,URINE 0.2 (NORMAL) E.U./dL (NORMAL)
[2022-12-27 13:16] LABS: BASOPHILS % (AUTO) 0.4 %; EOSINOPHILS # (AUTO) 0.1 10^3/uL (0.0-0.7); EOSINOPHILS % (AUTO) 0.7 %; HCT - HEMATOCRIT 43.8 % (37.0-47.0); HGB - HEMOGLOBIN 13.4 g/dL (12.0-16.0); LYMPHOCYTES # (AUTO) 1.1 10^3/uL (1.5-3.5); LYMPHOCYTES % (AUTO) 15.8 %; MEAN CORPUSCULAR HEMOGLOBIN 28.7 pg (27.0-31.0); MEAN CORPUSCULAR HGB CONC 30.6 g/dL (32.0-36.0); MEAN CORPUSCULAR VOLUME 93.8 fL (81.0-99.0); MEAN PLATELET VOLUME 9.2 fL (7.9-10.8); MONOCYTES # (AUTO) 0.3 10^3/uL (0.0-1.0); MONOCYTES % (AUTO) 4.9 %; NEUTROPHILS # (AUTO) 5.2 10^3/uL (1.5-6.6); NEUTROPHILS % (AUTO) 77.9 %; PLT - PLATELET COUNT 194 10^3/uL (130-450); RED BLOOD COUNT 4.67 10^6/uL (4.20-5.40); WHITE BLOOD COUNT 6.7 x10^3/uL (4.8-10.8)
[2022-12-27 13:21] LABS: CLARITY,URINE CLEAR (CLEAR)
[2022-12-27 13:25] LABS: ALBUMIN 4.1 g/dL (3.2-5.5); ALBUMIN/GLOBULIN RATIO 1.1 (1.0-2.2); BILIRUBIN,TOTAL 0.5 mg/dL (0.2-1.0); CALCIUM 8.9 mg/dL (8.5-10.3); CREATININE 0.8 mg/dL (0.4-1.0); TOTAL PROTEIN 7.9 g/dL (6.7-8.2)
[2022-12-27 13:33] LABS: RBC,URINE 0-5 /HPF (0-5); WBC,URINE 0-3 /HPF (0-5)
[2022-12-27 13:34] LABS: BACTERIA,URINE Moderate /HPF (None Seen); SQUAMOUS EPITHELIAL CELL,UR MANY Squamous (<= Few)
[2022-12-27 13:42] LABS: THYROID STIMULATING HORMONE 1.28 uIU/mL (0.34-5.60)
--- NOTE | 2022-12-27 18:35 | XRAY Report ---
PROCEDURE: Chest 2 View X-Ray INDICATIONS: HEMATURA,PNEUMONIA TECHNIQUE: 2 views of the chest were acquired. COMPARISON: None. FINDINGS: Surgical changes and devices: None. Lungs and pleura: No pleural effusions or pneumothorax. Lungs are clear. Mediastinum: Mediastinal contours appear normal. Heart size is normal. Atherosclerotic vascular pricilla cification noted in the aortic arch. Bones and chest wall: No suspicious bony lesions. Overlying soft tissues appear unremarkable. IMPRESSION: No acute cardiopulmonary process. Reviewed by: Diego De La Rosa MD on 12/27/2022 5:34 PM AKDT Approved by: Diego De La Rosa MD on 12/27/2022 5:34 PM AKDT Station ID: [id number]
[2022-12-27 20:33] LABS: ESTIMATED AVERAGE GLUCOSE 131 mg/dL (70-100); HEMOGLOBIN A1c% 6.2 % (4.27-6.07)
== END 2022-12-27 12:46 | disposition home or self-care (01) ==
LOC: DI 12:45
PROVIDERS: ATTEND Family Medicine
DX: J18.9 Pneumonia, unspecified organism (principal); R53.83 Other fatigue; E11.9 Type 2 diabetes mellitus without complications; I10 Essential (primary) hypertension; R31.9 Hematuria, unspecified
CPT/HCPCS: 36415; 80053; 81001; 83036; 84443; 85025; 87086

== ENCOUNTER 2023-03-07 08:10 | Outpatient (CLI) | payer MEDICARE, OTHER ==
[2023-03-07 13:27] LABS: CHOL/HDL RATIO 2.5 (<4.4); CHOLESTEROL 149 mg/dL; HDL CHOLESTEROL 60 mg/dL; LDL CHOLESTEROL,CALCULATED 73 mg/dL; LDL/HDL RATIO 1.2 (<4.4); TRIGLYCERIDES 82 mg/dL (48-352); VLDL CHOLESTEROL 16 mg/dL
== END 2023-03-07 08:11 | disposition home or self-care (01) ==
LOC: LAB.N 08:10
PROVIDERS: ATTEND Internal Medicine Cardiovascular Disease
DX: E78.5 Hyperlipidemia, unspecified (principal)
CPT/HCPCS: 36415; 80061; 83721

== ENCOUNTER 2023-04-25 09:36 | Outpatient (CLI) | payer MEDICARE, OTHER ==
--- NOTE | 2023-04-25 14:25 | MRI Report ---
PROCEDURE: ANKLE WO - LT INDICATIONS: LEFT ANKLE PAIN TECHNIQUE: Noncontrast sagittal T1 spin echo and T2 fast spin echo with fat saturation, axial proton density fas t spin echo and T2 fast spin echo with fat saturation, coronal T1 spin echo and T2 fast spin echo wit h fat saturation through the ankle/hindfoot. COMPARISON: Left ankle radiograph dated 04/01/2023. FINDINGS: Image quality: Excellent. Bones and joints: Osteoarthritic changes are noted throughout midfoot and hindfoot joints with joint space narrowing, subchondral sclerosis and small marginal osteophyte formations. Mild marrow edema in volving medial malleolus is seen without discrete fracture line. No other area of abnormal marrow sig nal. No acute fracture or dislocation. Mild soft tissue swelling surrounding ankle and midfoot is see n. Moderate tibiotalar joint effusion is seen, no gross loose bodies. There is no hindfoot coalitions . No evidence of osteochondral injuries of talar dome. Well-defined plantar calcaneal enthesophyte is seen. Medial structures: There is fluid distending flexor tendon sheath. The posterior tibialis tendon is thickened with intrasubstance T2 hyperintense signal at the level of tibiotalar joint extending to th e talonavicular joint. The flexor digitorum longus, and flexor hallucis longus tendons are intact. T he posterior tibial neurovascular bundle appears normal within the tarsal tunnel, without extrinsic m ass effect. The deep layer (anterior and posterior tibiotalar ligaments) and superficial layer (tibi onavicular, tibiospring, and tibiocalcaneal ligaments) of the deltoid ligament appear normal. The sp ring ligament components (superomedial calcaneonavicular, medioplantar oblique calcaneonavicular, and inferoplantar longitudinal ligaments) are intact. Lateral structures: The anterior talofibular, calcaneofibular, and posterior talofibular ligaments a ppear mildly thickened with intrasubstance T2 hyperintense signal. More superiorly, the anterior and posterior tibiofibular ligaments also appears thickened with intrasubstance T2 hyperintense signal. The tibiofibular syndesmosis is normal in width at 2 mm or less. The peroneus longus and brevis ten dons demonstrate normal location and morphology. Adjacent bony peroneal tubercle and retrotrochlear prominence are normal in size. The sinus tarsi demonstrates normal fatty signal, without edema, fibr osis, or cyst formation. Visualized sinus tarsi components (cervical ligament, interosseous talocalc aneal ligament, roots of the inferior extensor retinaculum) appear normal. Anterior structures: The tibialis anterior, extensor hallucis longus, and extensor digitorum longus tendons appear intact. Posterior and plantar structures: Achilles tendon is intact. Medial and lateral bands of the planta r fascia are of normal thickness. No abductor digiti quinti muscle atrophy to suggest Hernandez neuropa thy. IMPRESSION: 1. Mild midfoot and hindfoot joint osteoarthritis. Bony contusion involving medial malleolus. No acut e fracture or dislocation. Midfoot and hindfoot soft tissue swelling and edema. No abscess collection . Moderate tibiotalar joint effusion, no gross loose bodies. No osteochondral injuries of talar dome. 2. Mild to moderate tenosynovitis involving flexor tendons with moderate grade intrasubstance partial thickness involving posterior tibialis tendon at the level of tibiotalar joint extending to the leve l of talonavicular joint. 3. Low-grade sprain/intrasubstance partial thickness tear involving lateral ankle ligaments. No full- thickness ligament rupture. Reviewed by: Connor Kowalski MD on 04/25/2023 2:24 PM PDT Approved by: Connor Kowalski MD on 04/25/2023 2:24 PM PDT Station ID: [id number]
== END 2023-04-25 09:37 | disposition home or self-care (01) ==
LOC: DI 09:36
PROVIDERS: ATTEND Family Medicine
DX: M19.072 Primary osteoarthritis, left ankle and foot (principal); S80.12XA Contusion of left lower leg, initial encounter; M25.472 Effusion, left ankle; S93.492A Sprain of other ligament of left ankle, initial encounter; M65.9 Synovitis and tenosynovitis, unspecified

== ENCOUNTER 2023-05-12 12:09 | Outpatient (CLI) | payer MEDICARE, OTHER ==
[2023-05-12 18:23] LABS: CALCIUM 9.4 mg/dL (8.5-10.3); CREATININE 0.8 mg/dL (0.6-1.3); POTASSIUM 4.2 mmol/L (3.5-4.5); URIC ACID 5.5 mg/dL (2.3-6.6)
[2023-05-12 18:25] LABS: BILIRUBIN,URINE NEGATIVE (NEGATIVE); GLUCOSE, URINE (UA) NEGATIVE (NEGATIVE); KETONES,URINE (UA) TRACE mg/dL (NEGATIVE); LEUKOCYTE ESTERASE, URINE TRACE (NEGATIVE); NITRITE,URINE NEGATIVE (NEGATIVE); OCCULT BLOOD,URINE NEGATIVE (NEGATIVE); PROTEIN,URINE 30 mg/dL (NEGATIVE); UROBILINOGEN,URINE 1 (NORMAL) E.U./dL (NORMAL)
[2023-05-12 18:44] LABS: CLARITY,URINE CLOUDY (CLEAR); RBC,URINE 0-5 /HPF (0-5); SQUAMOUS EPITHELIAL CELL,UR MANY Squamous (<= Few)
[2023-05-12 18:45] LABS: BACTERIA,URINE Many /HPF (None Seen)
[2023-05-12 18:46] LABS: MUCUS,URINE Few Strands
[2023-05-12 18:47] LABS: CASTS, URINE 0-2 Hyaline Casts /LPF
[2023-05-12 20:32] LABS: ESTIMATED AVERAGE GLUCOSE 128 mg/dL (70-100); HEMOGLOBIN A1c% 6.1 % (4.27-6.07)
== END 2023-05-12 12:10 | disposition home or self-care (01) ==
LOC: LAB.N 12:09
PROVIDERS: ATTEND Family Medicine
DX: I10 Essential (primary) hypertension (principal); M10.9 Gout, unspecified; E11.9 Type 2 diabetes mellitus without complications; R31.9 Hematuria, unspecified
CPT/HCPCS: 36415; 80048; 81001; 83036; 84550; 87086

== ENCOUNTER 2023-09-08 14:18 | Outpatient (CLI) | payer MEDICARE, OTHER ==
--- NOTE | 2023-09-09 09:45 | Mammography Report ---
BILATERAL DIGITAL SCREENING MAMMOGRAM 3D/2D: 09/08/2023 CLINICAL: Routine screening. Comparison is made to exams dated: 07/29/2022 mammogram, 04/10/2021 mammogram, 11/17/2020 mammogram, mammogram, and 10/13/2015 mammogram - [facility]. Both breasts are heterogeneously dense, which may obscure small masses (category c / 51-75% glandular tissue). No significant masses, calcifications, or other findings are seen in either breast. There has been no significant interval change. IMPRESSION: NEGATIVE There is no mammographic evidence of malignancy. A 1 year screening mammogram is recommended. Based on the Tyrer Cuzick model (a risk assessment model) the patient's lifetime risk is 3.1% and her 10 year risk is 0.0%. According to the ACR, ACS, and NCCN guidelines, an annual breast MRI exam jeremy g with mammogram is recommended if the patient's lifetime risk is 20% or greater. This exam was interpreted at Station ID: [id number]. NOTE: For mammograms, a report in lay terms will be sent to the patient. Approximately 15% of breast malignancies will not be visualized mammographically. In the management of a palpable breast mass, a negative mammogram must not discourage biopsy of a clinically suspicious lesion. Electronically Signed By: Rodrigo bower/mela:09/08/2023 15:49:54 letter sent: No_Letter ACR BI-RADS Category 1: Negative 3341F PARENCHYMAL PATTERN: (D) - The breast(s) demonstrate(s) heterogeneously dense fibroglandular [place]. BI-RADS CATEGORY: (1) - 1 Mammogram [id number] 1 year screening LATERALITY: (B)
== END 2023-09-08 14:19 | disposition home or self-care (01) ==
LOC: DI 14:18
DX: Z12.31 Encounter for screening mammogram for malignant neoplasm of breast (principal); R92.333 Mammographic heterogeneous density, bilateral breasts

== ENCOUNTER 2023-10-26 08:00 | Outpatient (CLI) | payer MEDICARE, OTHER ==
[2023-10-26 13:32] LABS: BILIRUBIN,URINE NEGATIVE (NEGATIVE); GLUCOSE, URINE (UA) NEGATIVE (NEGATIVE); KETONES,URINE (UA) NEGATIVE (NEGATIVE); LEUKOCYTE ESTERASE, URINE NEGATIVE (NEGATIVE); NITRITE,URINE NEGATIVE (NEGATIVE); OCCULT BLOOD,URINE NEGATIVE (NEGATIVE); PROTEIN,URINE NEGATIVE (NEGATIVE); UROBILINOGEN,URINE 0.2 (NORMAL) E.U./dL (NORMAL)
[2023-10-26 13:33] LABS: CLARITY,URINE CLEAR (CLEAR)
[2023-10-26 14:29] LABS: BACTERIA,URINE Few /HPF (None Seen); RBC,URINE 0-5 /HPF (0-5); SQUAMOUS EPITHELIAL CELL,UR MOD Squamous (<= Few); WBC,URINE 0-3 /HPF (0-5)
== END 2023-10-26 23:59 | disposition home or self-care (01) ==
LOC: LAB.WCP 08:00
PROVIDERS: ATTEND Urology
DX: R31.9 Hematuria, unspecified (principal)
CPT/HCPCS: 81001; 87086